=== PATIENT | male | born 1950 | race Caucasian/White ===

== ENCOUNTER → 2017-01-26 | Outpatient (CLI) | payer OTHER, MEDICARE ==
[~2017-01-26] MED LIST: AMINOPHYLLINE INJ/PF 250 MG/10 ML SDV IV ONE; REGADENOSON INJ 0.4 MG/5 ML DISP.SYRIN IV ONE
--- NOTE | 2017-01-26 13:39 | DRAGON STRESS TEST REPORT ---
INTRAVENOUS LEXISCAN CARDIOLITE STRESS TEST USING SINGLE PHOTON EMMISION COMPUTERIZED TOMOGRAPHIC. DATE OF PROCEDURE: January 26, 2017 INDICATION : Chest pain CARDIAC RISK FACTORS: Diabetes, hypertension, dyslipidemia, history of CAD with CABG RESTING EKG: Sinus rhythm, no Baseline ST segment changes noted STRESS EKG: No significant changes noted with LexiScan bolus REASON FOR TERMINATION: Protocol. PROCEDURE REPORT: Baseline heart rate 71 beats per minute with blood pressure of 129/66. Patient had no significant complaints. Heart rate at 2 minutes post bolus 82 with a blood pressure of 147/65. 3 minutes post bolus heart rate 80 with blood pressure of 176/69. No significant EKG changes were noted. Patient had no significant complaints during the procedure or postprocedure. Patient injected with Aminophyllin 75 mg at 3 minutes or later after Lexiscan bolus. CONCLUSIONS: Normal EKG and hemodynamic response to IV LexiScan. NUCLEAR DATA: At rest the patient was given 14.53 millicuries of technetium 99 sestamibi injected intravenously. As per protocol rest gated SPECT images were obtained. Subsequently the patient was given intravenous LexiScan at a dose of 0.4 mg in 5 mL intravenously, followed by flush with normal saline. Subsequently the stress dose of 44.5 millicuries of technetium 99 sestamibi was injected intravenously. As per protocol stress gated images were obtained. NUCLEAR INTERPRETATION: Both raw and processed data were used for interpretation. Visual, qualitative, computer-generated quantitative data was used. There was good myocardial uptake of technetium compound. Motion artifact and soft tissue attenuations were noted. Increased visceral uptake was noted. Mild decreased transient perfusion defect noted in the distal anterior wall consistent with mild ischemia noted. No definitive areas of fixed perfusion defect or scars noted. EKG gated imaging showed LV EF at 49 %, rest and stress gated EF similar visually, no definite wall motion abnormalities noted. T. I D. ratio was 1.23, this is borderline. Lung heart ratio noted to be within normal limits 0.32. No significant extracardiac and abnormal radiotracer activities were noted. RV free wall uptake was noted to be increased. IMPRESSION: Also refer to comments under nuclear interpretation. Also test results needs to be interpreted in the context of pretest probability. 1. Mild decreased transient perfusion defect noted in the distal anterior wall consistent with mild ischemia noted. SDS score is 1 2. There is no definitive scintigraphic evidence of myocardial infarction/scar. 3. EKG gated imaging shows left ejection fraction of approximately 49 %. Borderline transient ischemic dilatation suspected. RV free wall uptake noted to be mildly increased. 4. Clinical correlation requested as occasionally worse disease or balanced ischemia could be missed. In approximately 10% of the cases Lexiscan may not cause adequate vasodilatory stress. RECOMMENDATIONS: Aggressive risk factor modification, medical therapy. Consider heart catheterization if significant symptoms. Clinical correlation with echocardiogram derived ejection fraction. Inability to exercise by itself can lead to increased cardiovascular event risks. Consider cardiology consultation and or follow-up if clinically indicated. I AM AVAILABLE FOR CARDIOLOGY CONSULTATION AND FOLLOWUP IF REQUESTED BY PMD Mike Mora M.D., SHAN[employer] Reviewer auto parts handler, Board certified in cardiovascular diseases, Nuclear cardiology, Echocardiography Cardiac CT and cardiac MRI Ph. [phone] [facility]
== END ==
LOC: RAD 06:20
PROVIDERS: ATTEND Internal Medicine Cardiovascular Disease
DX: R07.9 Chest pain, unspecified (principal); I10 Essential (primary) hypertension; E78.5 Hyperlipidemia, unspecified
CPT/HCPCS: 93017; 78452; A9500; J2785; J0280; Q9969

== ENCOUNTER 2017-03-24 05:38 | Emergency (ER) | payer OTHER, MEDICARE ==
[2017-03-24] MEDS ORDERED: ONDANSETRON 4 MG TAB.RAPDIS PO ONE (06:52)
[2017-03-24] MEDS ORDERED: ASPIRIN 81 MG TABLET, CHEWABLE PO ONE (06:52)
--- NOTE | 2017-03-24 07:29 | RADIOLOGY REPORT (SQ) ---
EXAM DESCRIPTION: CHEST SINGLE VIEW COMPLETED DATE/TIME: 03/24/2017 7:05 am REASON FOR STUDY: chest pain COMPARISON: 05/30/2009. EXAM PARAMETERS: NUMBER OF VIEWS: One view. TECHNIQUE: Single frontal radiographic view of the chest acquired. RADIATION DOSE: NA LIMITATIONS: None. FINDINGS: LUNGS AND PLEURA: No opacities, masses or pneumothorax. No pleural effusion. MEDIASTINUM AND HILAR STRUCTURES: No masses. Contour normal. HEART AND VASCULAR STRUCTURES: Heart normal in size. Normal vasculature. BONES: No acute findings. HARDWARE: Sternotomy. Surgical clips overlie the left medial hemidiaphragm. OTHER: No other significant finding. IMPRESSION: NO ACUTE RADIOGRAPHIC FINDING IN THE CHEST. TECHNICAL DOCUMENTATION: JOB ID: [id number]
--- NOTE | 2017-03-24 07:35 | ER Document Report ---
ED General - General Chief Complaint: Chest Pain Stated Complaint: CHEST PAIN Time Seen by Provider: 03/24/17 06:03 Mode of Arrival: Medic Information source: Patient Notes: 66-year-old male history of SC with recent heart catheterization noting 90% blockage presents with complaints of continued chest pain as well as new onset left arm numbness. Patient denies any neurological deficits otherwise states the chest pain has been constant denies any fevers or chills TRAVEL OUTSIDE OF THE [place] IN LAST 30 DAYS: No - HPI Onset: Just prior to arrival Onset/Duration: Sudden Quality of pain: Pressure Severity: Mild Pain Level: 1 Associated symptoms: Chest pain, Other Exacerbated by: Denies Relieved by: Denies Similar symptoms previously: Yes Recently seen / treated by doctor: Yes - Related Data Allergies/Adverse Reactions: buspirone [Buspirone] Allergy (Severe, Verified 05/17/16 12:50) aspirin Allergy (Verified 05/17/16 12:50) VOMITING lisinopril Allergy (Verified 05/17/16 12:50) swelling metformin Allergy (Verified 05/17/16 12:50) ringing in ears/dizziness metoclopramide HCl [From Reglan] Allergy (Verified 05/17/16 12:50) Hallucinations pregabalin Allergy (Verified 05/17/16 12:50) diarrhea/stomach upset red dye [Red Dye] Allergy (Verified 05/17/16 12:50) Rash venlafaxine Allergy (Verified 05/17/16 12:50) coded from other allergy "vemlasaxine" ibuprofen Adverse Reaction (Verified 05/17/16 12:50) headache ivp dye Allergy (Uncoded 05/17/16 12:50) Rash Past Medical History - Social History Smoking Status: Never Smoker Cigarette use (# per day): No Chew tobacco use (# tins/day): No Smoking Education Provided: No Family History: Reviewed & Not Pertinent - Past Medical History Cardiac Medical History: Reports: Hx Coronary Artery Disease, Hx Heart Attack - 11/2000, Hx Hypercholesterolemia, Hx Hypertension Pulmonary Medical History: Denies: Hx Asthma, Hx Bronchitis, Hx COPD, Hx Pneumonia Neurological Medical History: Reports: Hx Cerebrovascular Accident - 02/2001. Denies: Hx Seizures Endocrine Medical History: Reports: Hx Diabetes Mellitus Type 1 Renal/ Medical History: Denies: Hx Peritoneal Dialysis GI Medical History: Reports: Hx Gastroesophageal Reflux Disease Musculoskeltal Medical History: Reports Hx Arthritis Past Surgical History: Reports: Hx Abdominal Surgery, Hx Cholecystectomy, Hx Open Heart Surgery - Immunizations Hx Diphtheria, Pertussis, Tetanus Vaccination: No - unsure Hx Pneumococcal Vaccination: 09/25/11 Review of Systems - Review of Systems Notes: REVIEW OF SYSTEMS: CONSTITUTIONAL : Denies fever, chills, or sweats. Denies recent illness. EENT: Denies eye, ear, throat, or mouth pain or symptoms. Denies nasal or sinus congestion or discharge. Denies throat, tongue, or mouth swelling or difficulty swallowing. CARDIOVASCULAR: Admits to left-sided chest pressure RESPIRATORY: Denies cough, cold, or chest congestion. Denies shortness of breath, difficulty breathing, or wheezing. GASTROINTESTINAL: Denies abdominal pain or distention. Denies nausea, vomiting , or diarrhea. Denies blood in vomitus, stools, or per rectum. Denies black, tarry stools. Denies constipation. GENITOURINARY: Denies difficulty urinating, painful urination, burning, frequency, blood in urine, or discharge. MUSCULOSKELETAL: Denies back or neck pain or stiffness. Denies joint pain or swelling. SKIN: Denies rash, lesions or sores. HEMATOLOGIC : Denies easy bruising or bleeding. LYMPHATIC: Denies swollen, enlarged glands. NEUROLOGICAL: Admits to left arm numbness PSYCHIATRIC: Denies anxiety or stress. Denies depression, suicidal ideation, or homicidal ideation. ALL OTHER SYSTEMS REVIEWED AND NEGATIVE. Dictation was performed using [employer] voice recognition software PHYSICAL EXAMINATION: GENERAL: Well-appearing, well-nourished and in no acute distress. HEAD: Atraumatic, normocephalic. EYES: Pupils equal round and reactive to light, extraocular movements intact, sclera anicteric, conjunctiva are normal. ENT: Nares patent, oropharynx clear without exudates. Moist mucous membranes. NECK: Normal range of motion, supple without lymphadenopathy LUNGS: Breath sounds clear to auscultation bilaterally and equal. No wheezes rales or rhonchi. HEART: Regular rate and rhythm without murmurs ABDOMEN: Soft, nontender, nondistended abdomen. No guarding, no rebound. No masses appreciated. Musculoskeletal: Normal range of motion, no pitting or edema. No cyanosis. NEUROLOGICAL: Cranial nerves grossly intact. Normal speech, normal gait. Normal sensory, motor exams except for subjective paresthesia of the left arm PSYCH: Normal mood, normal affect. SKIN: Warm, Dry, normal turgor, no rashes or lesions noted. Physical Exam - Vital signs Vitals: Temp Pulse Resp BP Pulse Ox 97.4 F 109 H 20 143/66 H 96 03/24/17 05:47 03/24/17 05:47 03/24/17 05:47 03/24/17 05:47 03/24/17 05:47 Course - Re-evaluation Re-evalutation: 03/24/17 07:40 Patient awoke with left arm numbness, last known well was last night. I read the patient's cardiac cath report and no extensive disease. Once labwork CTA have resolved I will speak with [facility] regarding patient's care 03/24/17 09:[address] Miller , will accept transfer , reviewed report - Vital Signs Vital signs: Temp Pulse Resp BP Pulse Ox 97.4 F 109 H 12 132/71 H 93 03/24/17 05:47 03/24/17 05:47 03/24/17 08:30 03/24/17 08:30 03/24/17 08:30 - Laboratory Result Diagrams: 03/24/17 06:04 03/24/17 06:04 Laboratory results interpreted by me: 03/24/17 03/24/17 03/24/17 06:04 06:04 06:04 WBC 15.9 H RDW 14.1 H Seg Neutrophils % 83.3 H Lymphocytes % 11.3 L Absolute Neutrophils 13.3 H BUN 23 H Glucose 321 H Creatine Kinase 504 H CK-MB (CK-2) 6.46 H
[2017-03-24 07:41] LABS: ABSOLUTE LYMPHOCYTES (AUTO) 1.8 10^3/uL (0.5-4.7); ABSOLUTE MONOCYTES (AUTO) 0.8 10^3/uL (0.1-1.4); ABSOLUTE NEUT (AUTO) 13.3 10^3/uL (1.7-8.2); BASOPHILS % (AUTO) 0.2 % (0-2); HEMOGLOBIN 14.4 g/dL (13.5-17.0); HGB HCT DIFFERENCE 1.2; LYMPHOCYTES % (AUTO) 11.3 % (13-45); MEAN CORPUSCULAR HEMOGLOBIN 29.3 pg (27.0-33.4); MEAN CORPUSCULAR HGB CONC 34.3 g/dL (32.0-36.0); MEAN CORPUSCULAR VOLUME 86 fl (80-97); MONOCYTES % (AUTO) 5.2 % (3-13); RED BLOOD COUNT 4.91 10^6/uL (4.35-5.55); RED CELL DISTRIBUTION WIDTH 14.1 % (11.5-14.0); SEGMENTED NEUTROPHILS % (AUTO) 83.3 % (42-78); WHITE BLOOD COUNT 15.9 10^3/uL (4.0-10.5)
[2017-03-24 07:47] LABS: ALANINE AMINOTRANSFERASE 39 U/L (21-72); ALBUMIN 4.3 g/dL (3.5-5.0); ALKALINE PHOSPHATASE 91 U/L (38-126); ANION GAP 11 (5-19); ASPARTATE AMINO TRANSFERASE 49 U/L (17-59); BILIRUBIN,DIRECT 0.4 mg/dL (0.0-0.4); BILIRUBIN,TOTAL 0.6 mg/dL (0.2-1.3); BLOOD UREA NITROGEN 23 mg/dL (7-20); CALCIUM 9.3 mg/dL (8.4-10.2); CARBON DIOXIDE 27 mmol/L (22-30); CHLORIDE 101 mmol/L (98-107); CREATINE KINASE 504 U/L (55-170); CREATININE RESULT 0.73 mg/dL (0.52-1.25); GLUCOSE 321 mg/dL (75-110); POTASSIUM 4.1 mmol/L (3.6-5.0); SODIUM 138.9 mmol/L (137-145); TOTAL PROTEIN 7.4 g/dL (6.3-8.2)
--- NOTE | 2017-03-24 07:56 | RADIOLOGY REPORT (SQ) ---
EXAM DESCRIPTION: CT HEAD WITHOUT COMPLETED DATE/TIME: 03/24/2017 7:45 am REASON FOR STUDY: left arm numbness COMPARISON: 05/30/2009. TECHNIQUE: Axial images acquired through the brain without intravenous contrast. Images reviewed wi th bone, brain and subdural windows. Images stored on PACS. All CT scanners at this facility use dose modulation, iterative reconstruction, and/or weight based d osing when appropriate to reduce radiation dose to as low as reasonably achievable (ALARA). [facility]: Dose Right [facility]: CareDose [facility]: Dose Right [facility]: Teradose 4D [facility]: What the Trend RADIATION DOSE: 63.81 mGy. LIMITATIONS: None. FINDINGS: VENTRICLES: Normal size and contour. CEREBRUM: No masses. No hemorrhage. No midline shift. Normal robert/white matter differentiation. N o evidence for acute infarction. Mild white matter microangiopathy. CEREBELLUM: No masses. No hemorrhage. No alteration of density. No evidence for acute infarction. EXTRAAXIAL SPACES: No fluid collections. No masses. ORBITS AND GLOBE: No intra- or extraconal masses. Normal contour of globe without masses. CALVARIUM: No fracture. PARANASAL SINUSES: Moderate right maxillary mucosal thickening. SOFT TISSUES: No mass or hematoma. OTHER: No other significant finding. IMPRESSION: No acute findings. Stable mild white matter microangiopathy pattern. Chronic right max illary sinusitis. TECHNICAL DOCUMENTATION: JOB ID: [id number] Quality ID # [id number]: Final reports with documentation of one or more dose reduction techniques (e.g., Au tomated exposure control, adjustment of the mA and/or kV according to patient size, use of iterative reconstruction technique) 2010 [employer]- All Rights Reserved
[2017-03-24 07:58] LABS: CREATINE KINASE MB 6.46 ng/mL (<4.55)
[2017-03-24 07:59] LABS: TROPONIN I < 0.012 ng/mL
[2017-03-24] MEDS ORDERED: NITROGLYCERIN 0.4 MG/TAB 25 TAB/BOTTLE SL ONE (08:10)
[2017-03-24] MEDS ORDERED: MORPHINE SULFATE 10 MG/ML INJ IV ONE (08:25)
--- NOTE | 2017-03-24 08:36 | EKG REPORT ---
SEVERITY:- OTHERWISE NORMAL ECG - SINUS TACHYCARDIA : Confirmed by: Mike Mora 24-Mar-2017 08:36:06
[2017-03-24] MEDS ORDERED: INSULIN GLARGINE,HUM.REC.ANLOG 1,000 UNIT/10 ML UNIT SUBCUT ONE (09:47)
[2017-03-24 10:37] VITALS: BP 137/75
== END 2017-03-24 10:30 | disposition short-term general hospital (02) ==
LOC: ER 05:38
DX: I25.110 Atherosclerotic heart disease of native coronary artery with unstable angina pectoris (principal); R20.0 Anesthesia of skin; I10 Essential (primary) hypertension; I25.2 Old myocardial infarction; E10.9 Type 1 diabetes mellitus without complications; Z88.6 Allergy status to analgesic agent; Z88.8 Allergy status to other drugs, medicaments and biological substances; Z91.048 Other nonmedicinal substance allergy status; Z91.040 Latex allergy status; Z86.73 Personal history of transient ischemic attack (TIA), and cerebral infarction without residual deficits
CPT/HCPCS: 93005; 99285; 96374; 36415; 82553; 82962; 82550; 85025; 80053; 84484; 71010; 70450; 93010; J1815; S0119; J2270

== ENCOUNTER 2017-04-26 06:48 | Day surgery (SDC) | payer MEDICARE, OTHER ==
[~2017-04-26 06:48] MED LIST changes: -AMINOPHYLLINE INJ/PF 250 MG/10 ML SDV IV ONE; +FENTANYL CITRATE INJ/PF 100 MCG/2 ML AMPUL ONE; +KETOROLAC TROMETHAMINE 0.45% 4 DROP/0.4 ML DROPERETTE OD PRN; +MIDAZOLAM 2 MG/2 ML INJ ONE; -REGADENOSON INJ 0.4 MG/5 ML DISP.SYRIN IV ONE
[2017-04-26] MEDS ORDERED: EPINEPHRINE INJ/PF 1 MG/1 ML AMPULE ONE (07:17)
[2017-04-26] MEDS ORDERED: CHONDR SU A NA/HYALUR INTRAOC KIT (SURGICARE) ONE (07:17)
[2017-04-26] MEDS ORDERED: TOBRAMYCIN SULFATE/DEXAMETH OPH OINTMENT 3.5 GM ONE (07:17)
[2017-04-26] MEDS ORDERED: LIDOCAINE 1% INJ-PF (10 MG/ML) 30 ML SDV ONE (07:17)
[2017-04-26] MEDS: LIDOCAINE 3.5% OPH GEL/PF 1 ML/TUBE OD PRN ×3 (07:25→07:58)
[2017-04-26] MEDS: CYCLOPENTOLATE 0.2%/PHENYLEPHRINE 1% OPH SOLN 2 ML OD PRN ×3 (07:26→07:47)
[2017-04-26] MEDS: TROPICAMIDE 1% OPH SOLN 3 ML OD PRN ×3 (07:26→07:47)
[2017-04-26] MEDS: BESIFLOXACIN HCL 0.6% OPH SUSP 5 ML BOTTLE OD PRN ×3 (07:27→08:18)
[2017-04-26] MEDS ORDERED: PHENYLEPHRINE/KETOROLAC 1%-0.3% 4 ML VIAL ONE (07:34)
[2017-04-26] MEDS ORDERED: MIDAZOLAM 2 MG/2 ML INJ ONE (08:07)
== END 2017-04-26 09:08 | disposition home or self-care (01) ==
LOC: SC 06:48
PROVIDERS: ATTEND Ophthalmology
PROC: 08RJ3JZ Replacement of Right Lens with Synthetic Substitute, Percutaneous Approach (ICD-10-PCS; principal; 2017-04-26 07:45)
DX: H25.11 Age-related nuclear cataract, right eye (principal); E11.9 Type 2 diabetes mellitus without complications; I10 Essential (primary) hypertension; E78.00 Pure hypercholesterolemia, unspecified; G47.30 Sleep apnea, unspecified; I25.2 Old myocardial infarction; Z86.73 Personal history of transient ischemic attack (TIA), and cerebral infarction without residual deficits; Z79.899 Other long term (current) drug therapy; Z79.4 Long term (current) use of insulin; Z79.1 Long term (current) use of non-steroidal anti-inflammatories (NSAID); Z87.891 Personal history of nicotine dependence; Z88.8 Allergy status to other drugs, medicaments and biological substances
CPT/HCPCS: 66984; 82962; V2632; J2250; J3490 ×3; J3010; A9270; C9447; 142; J0171

== ENCOUNTER 2017-05-10 08:21 | Day surgery (SDC) | payer MEDICARE, OTHER ==
[~2017-05-10 08:21] MED LIST changes: -FENTANYL CITRATE INJ/PF 100 MCG/2 ML AMPUL ONE; -KETOROLAC TROMETHAMINE 0.45% 4 DROP/0.4 ML DROPERETTE OD PRN; +KETOROLAC TROMETHAMINE 0.45% 4 DROP/0.4 ML DROPERETTE OS PRN; -MIDAZOLAM 2 MG/2 ML INJ ONE
[2017-05-10] MEDS: TROPICAMIDE 1% OPH SOLN 3 ML OS PRN ×3 (09:15→09:36)
[2017-05-10] MEDS: CYCLOPENTOLATE 0.2%/PHENYLEPHRINE 1% OPH SOLN 2 ML OS PRN ×3 (09:15→09:36)
[2017-05-10] MEDS: BESIFLOXACIN HCL 0.6% OPH SUSP 5 ML BOTTLE OS PRN ×3 (09:16→10:07)
[2017-05-10] MEDS: LIDOCAINE 3.5% OPH GEL/PF 1 ML/TUBE OS PRN ×3 (09:17→09:51)
[2017-05-10] MEDS ORDERED: FENTANYL CITRATE INJ/PF 100 MCG/2 ML AMPUL ONE (09:30)
[2017-05-10] MEDS ORDERED: MIDAZOLAM 2 MG/2 ML INJ ONE (09:30)
[2017-05-10] MEDS ORDERED: CHONDR SU A NA/HYALUR INTRAOC KIT (SURGICARE) ONE (09:37)
[2017-05-10] MEDS ORDERED: EPINEPHRINE INJ/PF 1 MG/1 ML AMPULE ONE (09:37)
[2017-05-10] MEDS ORDERED: LIDOCAINE 1% INJ-PF (10 MG/ML) 30 ML SDV ONE (09:37)
[2017-05-10] MEDS ORDERED: TOBRAMYCIN SULFATE/DEXAMETH OPH OINTMENT 3.5 GM ONE (09:37)
== END 2017-05-10 10:44 | disposition home or self-care (01) ==
LOC: SC 08:21
PROVIDERS: ATTEND Ophthalmology
PROC: 08RK3JZ Replacement of Left Lens with Synthetic Substitute, Percutaneous Approach (ICD-10-PCS; principal; 2017-05-10 09:45)
DX: H25.12 Age-related nuclear cataract, left eye (principal); Z96.1 Presence of intraocular lens; Z98.41 Cataract extraction status, right eye; I10 Essential (primary) hypertension; E11.9 Type 2 diabetes mellitus without complications; E78.00 Pure hypercholesterolemia, unspecified; K21.9 Gastro-esophageal reflux disease without esophagitis; D64.9 Anemia, unspecified; E05.90 Thyrotoxicosis, unspecified without thyrotoxic crisis or storm; Z79.4 Long term (current) use of insulin; Z79.899 Other long term (current) drug therapy; Z87.891 Personal history of nicotine dependence; Z88.8 Allergy status to other drugs, medicaments and biological substances; I25.2 Old myocardial infarction; Z86.73 Personal history of transient ischemic attack (TIA), and cerebral infarction without residual deficits
CPT/HCPCS: 66984; 82962; V2632; J2250; J3490 ×3; J0171; J3010; A9270; 142

== ENCOUNTER 2017-11-19 10:10 | Emergency (ER) | payer OTHER, MEDICARE ==
[2017-11-19] MEDS ORDERED: NORMAL SALINE 1000 ML 1,000 ML IV ONE (10:58)
[2017-11-19 11:04] LABS: ABSOLUTE EOSINOPHILS # (AUTO) 0.2 10^3/uL (0.0-0.6); ABSOLUTE LYMPHOCYTES (AUTO) 1.1 10^3/uL (0.5-4.7); ABSOLUTE MONOCYTES (AUTO) 0.7 10^3/uL (0.1-1.4); ABSOLUTE NEUT (AUTO) 6.6 10^3/uL (1.7-8.2); BASOPHILS % (AUTO) 0.3 % (0-2); EOSINOPHILS % (AUTO) 2.7 % (0-6); HEMOGLOBIN 12.6 g/dL (13.5-17.0); LYMPHOCYTES % (AUTO) 12.6 % (13-45); MEAN CORPUSCULAR HEMOGLOBIN 30.4 pg (27.0-33.4); MEAN CORPUSCULAR HGB CONC 34.2 g/dL (32.0-36.0); MEAN CORPUSCULAR VOLUME 89 fl (80-97); MONOCYTES % (AUTO) 8.5 % (3-13); PLATELET COUNT 178 10^3/uL (150-450); RED BLOOD COUNT 4.16 10^6/uL (4.35-5.55); RED CELL DISTRIBUTION WIDTH 13.5 % (11.5-14.0); SEGMENTED NEUTROPHILS % (AUTO) 75.9 % (42-78); TOTAL CELLS COUNTED % (AUTO) 100 %; WHITE BLOOD COUNT 8.6 10^3/uL (4.0-10.5)
[2017-11-19 11:14] LABS: ALANINE AMINOTRANSFERASE 25 U/L (21-72); ALBUMIN 3.6 g/dL (3.5-5.0); ALKALINE PHOSPHATASE 48 U/L (38-126); ANION GAP 12 (5-19); ASPARTATE AMINO TRANSFERASE 23 U/L (17-59); BILIRUBIN,DIRECT 0.1 mg/dL (0.0-0.4); BILIRUBIN,TOTAL 0.5 mg/dL (0.2-1.3); BLOOD UREA NITROGEN 13 mg/dL (7-20); CALCIUM 8.7 mg/dL (8.4-10.2); CARBON DIOXIDE 29 mmol/L (22-30); CHLORIDE 97 mmol/L (98-107); GLUCOSE 186 mg/dL (75-110); POTASSIUM 4.3 mmol/L (3.6-5.0); SODIUM 137.6 mmol/L (137-145); TOTAL PROTEIN 5.8 g/dL (6.3-8.2)
--- NOTE | 2017-11-19 13:22 | RADIOLOGY REPORT (SQ) ---
EXAM DESCRIPTION: CT ABD/PELVIS NO ORAL OR IV COMPLETED DATE/TIME: 11/19/2017 1:12 pm REASON FOR STUDY: Postop abdominal pain COMPARISON: None. TECHNIQUE: CT scan of the abdomen and pelvis performed without intravenous or oral contrast. Images reviewed with lung, soft tissue, and bone windows. Reconstructed coronal and sagittal MPR images revi ewed. All images stored on PACS. All CT scanners at this facility use dose modulation, iterative reconstruction, and/or weight based d osing when appropriate to reduce radiation dose to as low as reasonably achievable (ALARA). [facility]: Dose Right [facility]: CareDose [facility]: Dose Right [facility]: Teradose 4D [facility]: [employer] RADIATION DOSE: CT Rad equipment meets quality standard of care and radiation dose reduction techniq ues were employed. CTDIvol: 16.7 mGy. DLP: 1043 mGy-cm.mGy. LIMITATIONS: None. FINDINGS: LOWER CHEST: Dependent subsegmental atelectasis. Otherwise unremarkable. NON-CONTRASTED LIVER, SPLEEN, ADRENALS: Evaluation limited by lack of IV contrast. No identified sign ificant masses. PANCREAS: No masses. No peripancreatic inflammatory changes. GALLBLADDER: No identified stones by CT criteria. No inflammatory changes to suggest cholecystitis. RIGHT KIDNEY AND URETER: No suspicious masses. Assessment limited by lack of IV contrast. No signif icant calcifications. No hydronephrosis or hydroureter. LEFT KIDNEY AND URETER: No suspicious masses. Assessment limited by lack of IV contrast. No signifi cant calcifications. No hydronephrosis or hydroureter. AORTA AND RETROPERITONEUM: Vascular calcifications. No aneurysm. No retroperitoneal masses or adeno chet. BOWEL AND PERITONEAL CAVITY: Scattered colonic diverticula. No obvious masses or inflammatory change s. No free fluid. APPENDIX: Normal. PELVIS, BLADDER, AND ABDOMINAL WALL:Expected postsurgical change related to recent hernia repair with subcutaneous gas. No abnormal masses. No free fluid. Bladder normal. BONES: Degenerative change without fracture or suspicious osseous lesion. OTHER: No other significant finding. IMPRESSION: NO ACUTE FINDINGS WITHIN THE ABDOMEN OR PELVIS. NO URINARY TRACT CALCULI OR HYDRONEPHRO SIS. EXPECTED POSTOPERATIVE CHANGE RELATED TO RECENT HERNIA REPAIR. ADDITIONAL CHRONIC CHANGES ABOVE. COMMENT: Quality ID # [id number]: Final reports with documentation of one or more dose reduction techniques (e.g., Automated exposure control, adjustment of the mA and/or kV according to patient size, use of iterative reconstruction technique) TECHNICAL DOCUMENTATION: JOB ID: [id number] [employer]- All Rights Reserved Reading location - IP/workstation name: [email or web address]
[2017-11-19 14:03] LABS: A TYPE INFLUENZA AG NEGATIVE (NEGATIVE); B INFLUENZA AG NEGATIVE (NEGATIVE)
--- NOTE | 2017-11-19 14:44 | ER Document Report ---
ED Dizziness/Weakness - General Chief Complaint: General Weakness Stated Complaint: WEAKNESS Notes: 66 years old male postop 4 days, had an abdominal hernia repaired the same time by lateral inguinal hernia was repaired, woke up this morning stood up felt dizzy and lightheaded had some temperature therefore presented to the ED. He also had numbness in the both hands with a history of carpal tunnel syndrome. Denied any increased abdominal pain nausea vomiting diarrhea . Denies any dysuria frequency urgency. Denies any chest pain shortness of breath or cough. TRAVEL OUTSIDE OF THE [place] IN LAST 30 DAYS: No - HPI Patient complains to provider of: Dizziness Onset/Duration: Sudden Associated symptoms: denies: None, Chest pain, Confused, Diarrhea, Dizzy, Ear pain, Almost fainted, Fainted, Headache, Hearing loss, Less responsive, Lightheaded, Loss of motor function, Loss of strength, Loss of sensation, Nausea , Palpitations, Paralysis, Recent fall, Recent trauma, Ringing/roaring in ear, Short of breath, Sleeping more, Sweating, Vertigo, Vomiting, Weak all over, Other - Related Data Allergies/Adverse Reactions: lisinopril Allergy (Severe, Verified 05/08/17 15:53) TONGUE swelling metformin Allergy (Severe, Verified 05/08/17 15:53) ringing in ears/dizziness metoclopramide HCl [From Reglan] Allergy (Severe, Verified 05/08/17 15:53) Hallucinations red dye [Red Dye] Allergy (Intermediate, Verified 05/08/17 15:53) Rash venlafaxine Allergy (Intermediate, Verified 05/08/17 15:53) coded from other allergy "vemlasaxine" HYPER buspirone [Buspirone] Allergy (Unknown, Verified 05/08/17 15:53) pregabalin Adverse Reaction (Intermediate, Verified 05/08/17 15:53) diarrhea/stomach upset ibuprofen Adverse Reaction (Mild, Verified 05/08/17 15:53) headache aspirin Adverse Reaction (Verified 05/08/17 15:53) VOMITING ivp dye Adverse Reaction (Intermediate, Uncoded 05/08/17 15:53) Rash Past Medical History - Social History Smoking Status: Unknown if Ever Smoked Cigarette use (# per day): No Chew tobacco use (# tins/day): No Frequency of alcohol use: Rare Drug Abuse: None Lives with: Family Family History: Reviewed & Not Pertinent Patient has suicidal ideation: No Patient has homicidal ideation: No - Past Medical History Cardiac Medical History: Reports: Hx Coronary Artery Disease, Hx Heart Attack - 11/2000, Hx Hypercholesterolemia, Hx Hypertension Pulmonary Medical History: Denies: Hx Asthma, Hx Bronchitis, Hx COPD, Hx Pneumonia Neurological Medical History: Reports: Hx Cerebrovascular Accident - 02/2001 DROP FOOT. Denies: Hx Seizures Endocrine Medical History: Reports: Hx Diabetes Mellitus Type 1 Renal/ Medical History: Denies: Hx Peritoneal Dialysis GI Medical History: Reports: Hx Gastroesophageal Reflux Disease, Hx Hiatal Hernia - LAP MIMI, Hx Ulcer. Denies: Hx Hepatitis Musculoskeltal Medical History: Reports Hx Arthritis Infectious Medical History: Denies: Hx Hepatitis Past Surgical History: Reports: Hx Abdominal Surgery - Hernia Repair x4 10/2017, Hx Cholecystectomy, Hx Open Heart Surgery - 07/2000. Denies: Hx Pacemaker - Immunizations Hx Diphtheria, Pertussis, Tetanus Vaccination: No - unsure Hx Pneumococcal Vaccination: 09/25/11 Review of Systems - Review of Systems Constitutional: Fever, Malaise. denies: No symptoms reported, See HPI, Chills, Diaphoresis, Weakness, Other, Weight gain, Weight loss, Recent illness EENT: denies: No symptoms reported, See HPI, Eye pain, Eye discharge, Blurred vision, Tearing, Double vision, Ear pain, Ear discharge, Nose pain, Nose congestion, Nose discharge, Sinus pressure, Sinus discharge, Throat pain, Difficulty swallowing, Throat swelling, Mouth pain, Mouth swelling, Dental problem, Vertigo, Other Cardiovascular: denies: No symptoms reported, See HPI, Chest pain, Palpitations , Heart racing, Orthopnea, Dyspnea, Syncope, Dizziness, Lightheaded, Edema, Other, Paroxysmal Nocturnal Dysp Gastrointestinal: denies: No symptoms reported, See HPI, Abdomen distended, Abdominal pain, Diarrhea, Nausea, Vomiting, Constipation, Blood streaked bowels , Poor appetite, Poor fluid intake, Blood in vomit, Black stools, Rectal bleeding, Last bowel movement, Fecal incontinence, Other Genitourinary: denies: No symptoms reported, See HPI, Burning, Dysuria, Discharge, Frequency, Flank pain, Hematuria, Incontinence, Pain, Urgency, Retention, Other Male Genitourinary: denies: No symptoms reported, See HPI, Erectile dysfunction , Testicular pain, Penile discharge, Other Musculoskeletal: denies: No symptoms reported, See HPI, Back pain, Gout, Joint pain, Joint swelling, Muscle pain, Muscle stiffness, Neck pain, Deformity, Leg swelling, Ankle swelling, Other Physical Exam - Vital signs Vitals: Resp BP 20 136/76 H 11/19/17 10:17 11/19/17 10:17 - Notes Notes: PHYSICAL EXAMINATION: GENERAL: Well-appearing, well-nourished and in no acute distress. Not in any acute distress HEAD: Atraumatic, normocephalic. EYES: Pupils equal round and reactive to light, extraocular movements intact, sclera anicteric, conjunctiva are normal. ENT: Nares patent, oropharynx clear without exudates. Moist mucous membranes. NECK: Normal range of motion, supple without lymphadenopathy LUNGS: Breath sounds clear to auscultation bilaterally and equal. No wheezes rales or rhonchi. HEART: Regular rate and rhythm without murmurs ABDOMEN: Abdominal surgical scars were noted. Soft, nontender, nondistended abdomen. No guarding, no rebound. No masses appreciated. Musculoskeletal: Normal range of motion, no pitting or edema. No cyanosis. NEUROLOGICAL: Cranial nerves grossly intact. Normal speech, normal gait. Normal sensory, motor exams PSYCH: Normal mood, normal affect. SKIN: Warm, Dry, normal turgor, no rashes or lesions noted. Course - Re-evaluation Re-evalutation: 11/19/17 14:41 He was given IV fluid, complete blood work were done, labs and CT were reviewed 11/19/17 14:44 - Vital Signs Vital signs: Temp Pulse Resp BP Pulse Ox 98.5 F 86 17 102/79 97 11/19/17 10:30 11/19/17 10:30 11/19/17 13:32 11/19/17 13:32 11/19/17 13:00 - Laboratory Result Diagrams: 11/19/17 09:50 11/19/17 09:50 Laboratory results interpreted by me: 11/19/17 11/19/17 09:50 09:50 RBC 4.16 L Hgb 12.6 L Hct 37.0 L Lymphocytes % 12.6 L Chloride 97 L Glucose 186 H Total Protein 5.8 L Lipase 22.0 L Discharge - Discharge Clinical Impression: Postoperative abdominal pain, Viral syndrome, Dehydration, Carpal tunnel syndrome on both sides Condition: Fair Disposition: HOME, SELF-CARE Instructions: Abdominal Pain ([facility]), Bowel Obstruction ([facility]), Fever ([facility]), Carpal Tunnel Syndrome ([facility]) Referrals: JAZIEL THORNTON MD [Primary Care Provider] - Follow up as needed
[2017-11-19 15:43] VITALS: BP 147/73
== END 2017-11-19 15:55 | disposition home or self-care (01) ==
LOC: ER 10:10
DX: G89.18 Other acute postprocedural pain (principal); B34.9 Viral infection, unspecified; E86.0 Dehydration; G56.03 Carpal tunnel syndrome, bilateral upper limbs; R53.1 Weakness; R42 Dizziness and giddiness; R20.0 Anesthesia of skin; Z98.890 Other specified postprocedural states
CPT/HCPCS: 99285; 96360; 36415; 83690; 85025; 82272; 80053; 83605; 87804; 74176; J7030

== ENCOUNTER → 2019-06-27 | Outpatient (CLI) | payer OTHER, MEDICARE | LOC: OD 15:02 | PROVIDERS: ATTEND Otolaryngology | DX: R68.2 Dry mouth, unspecified (principal) | CPT/HCPCS: 36415; 86235 ==

== ENCOUNTER 2019-07-30 11:47 | Observation (INO) | payer OTHER, MEDICARE ==
--- NOTE | 2019-07-30 12:24 | RADIOLOGY REPORT (SQ) ---
EXAM DESCRIPTION: CT HEAD WITHOUT COMPLETED DATE/TIME: 07/30/2019 12:14 pm REASON FOR STUDY: Headache with history of CVA COMPARISON: 03/24/2017 TECHNIQUE: Axial images acquired through the brain without intravenous contrast. Images reviewed wi th bone, brain and subdural windows. Additional sagittal and coronal reconstructions were generated. Images stored on PACS. All CT scanners at this facility use dose modulation, iterative reconstruction, and/or weight based d osing when appropriate to reduce radiation dose to as low as reasonably achievable (ALARA). [facility]: Dose Right [facility]: CareDose [facility]: Dose Right [facility]: Teradose 4D [facility]: [employer] RADIATION DOSE: CT Rad equipment meets quality standard of care and radiation dose reduction techniq ues were employed. CTDIvol: 53.2 mGy. DLP: 1097 mGy-cm. mGy. LIMITATIONS: None. FINDINGS: VENTRICLES: Normal size and contour. CEREBRUM: No masses. No hemorrhage. No midline shift. No evidence for acute infarction. Few scatte red areas of low density in the white matter most likely chronic small vessel ischemic changes. CEREBELLUM: No masses. No hemorrhage. No alteration of density. No evidence for acute infarction. EXTRAAXIAL SPACES: No fluid collections. No masses. ORBITS AND GLOBE: No intra- or extraconal masses. Normal contour of globe without masses. CALVARIUM: No fracture. PARANASAL SINUSES: Mild mucoperiosteal thickening in the maxillary sinuses. Bilateral antral windows . SOFT TISSUES: No mass or hematoma. OTHER: No other significant finding. IMPRESSION: Mild chronic microvascular ischemia. No acute intracranial imaging findings. Chronic m axillary sinus disease. EVIDENCE OF ACUTE STROKE: NO. COMMENT: Quality ID # [id number]: Final reports with documentation of one or more dose reduction techniques (e.g., Automated exposure control, adjustment of the mA and/or kV according to patient size, use of iterative reconstruction technique) TECHNICAL DOCUMENTATION: JOB ID: [id number] [employer]- All Rights Reserved Reading location - IP/workstation name: [email or web address]
[2019-07-30 13:02] LABS: ALBUMIN 3.3 g/dL (3.5-5.0); CHLORIDE 99 mmol/L (98-107); POTASSIUM 4.4 mmol/L (3.6-5.0)
[2019-07-30 13:20] LABS: APPEARANCE,URINE CLEAR; BILIRUBIN,URINE NEGATIVE (NEGATIVE); COLOR,URINE YELLOW; GLUCOSE, URINE 50 mg/dL (NEGATIVE); KETONES,URINE NEGATIVE (NEGATIVE); LEUKOCYTE ESTERASE,URINE NEGATIVE (NEGATIVE); NITRITE,URINE NEGATIVE (NEGATIVE); PROTEIN,URINE NEGATIVE (NEGATIVE); URINE SPECIFIC GRAVITY 1.006; UROBILINOGEN,URINE NEGATIVE mg/dL (<2.0)
[2019-07-30 13:38] LABS: ALKALINE PHOSPHATASE 53 U/L (38-126); ANION GAP 10 (5-19); ASPARTATE AMINO TRANSFERASE 23 U/L (17-59); BILIRUBIN,DIRECT 0.2 mg/dL (0.0-0.4); BILIRUBIN,TOTAL 0.8 mg/dL (0.2-1.3); BLOOD UREA NITROGEN 13 mg/dL (7-20); CALCIUM 8.6 mg/dL (8.4-10.2); CARBON DIOXIDE 27 mmol/L (22-30); GLUCOSE 158 mg/dL (75-110); TOTAL PROTEIN 6.1 g/dL (6.3-8.2)
[2019-07-30 13:47] LABS: ABSOLUTE EOSINOPHILS # (AUTO) 0.1 10^3/uL (0.0-0.6); ABSOLUTE LYMPHOCYTES (AUTO) 1.1 10^3/uL (0.5-4.7); ABSOLUTE MONOCYTES (AUTO) 0.7 10^3/uL (0.1-1.4); ABSOLUTE NEUT (AUTO) 6.3 10^3/uL (1.7-8.2); BASOPHILS % (AUTO) 0.5 % (0-2); EOSINOPHILS % (AUTO) 1.7 % (0-6); HEMATOCRIT 40.3 % (37.9-51.0); HEMOGLOBIN 14.2 g/dL (13.5-17.0); LYMPHOCYTES % (AUTO) 12.9 % (13-45); MEAN CORPUSCULAR HEMOGLOBIN 31.3 pg (27.0-33.4); MEAN CORPUSCULAR HGB CONC 35.3 g/dL (32.0-36.0); MEAN CORPUSCULAR VOLUME 89 fl (80-97); PLATELET COUNT 212 10^3/uL (150-450); RED BLOOD COUNT 4.53 10^6/uL (4.35-5.55); RED CELL DISTRIBUTION WIDTH 13.5 % (11.5-14.0); SEGMENTED NEUTROPHILS % (AUTO) 76.9 % (42-78); TOTAL CELLS COUNTED % (AUTO) 100 %; WHITE BLOOD COUNT 8.2 10^3/uL (4.0-10.5)
[2019-07-30] MEDS ORDERED: MORPHINE SULFATE 10 MG/ML INJ IV ONE (13:55)
[2019-07-30] MEDS ORDERED: NORMAL SALINE 1000 ML 1,000 ML IV ONE (13:55)
[2019-07-30] MEDS ORDERED: BUTALB/ACETAMINOPHEN/CAFFEINE 1 TAB EACH PO ONE (15:10)
--- NOTE | 2019-07-30 15:22 | ER Document Report ---
ED General - General Chief Complaint: Headache Stated Complaint: HEADACHE Time Seen by Provider: 07/30/19 12:10 [facility] [[facility] - Follow up as needed Mode of Arrival: Ambulatory Information source: Patient TRAVEL OUTSIDE OF THE [place] IN LAST 30 DAYS: No - HPI Notes: Patient presents with headache that is mainly frontal and on the top of his head. It is been going on for several weeks but is gradually getting worse. He states last night he was screaming in pain and unable to sleep. His states he is also been acting confused. Patient also complained of some generalized body aches. The headache is worse with movement or light and better with rest and dark room. It is severe and constant. It is a throbbing and sharp sensation as well as a pressure. He has a history of 4 previous sinus surgeries. He recently was tried on Augmentin but this made no difference in the headache. He has not been having relief from the pain medicines he takes at home. Some nausea no vomiting or diarrhea. No rashes. No known tick bites. - Related Data Allergies/Adverse Reactions: lisinopril Allergy (Severe, Verified 05/19/18 23:19) TONGUE swelling metformin Allergy (Severe, Verified 05/19/18 23:19) ringing in ears/dizziness metoclopramide HCl [From Reglan] Allergy (Severe, Verified 05/19/18 23:19) Hallucinations red dye [Red Dye] Allergy (Intermediate, Verified 05/19/18 23:19) Rash venlafaxine Allergy (Intermediate, Verified 05/19/18 23:19) coded from other allergy "vemlasaxine" HYPER buspirone [Buspirone] Allergy (Unknown, Verified 05/19/18 23:19) pregabalin Adverse Reaction (Intermediate, Verified 05/19/18 23:19) diarrhea/stomach upset ibuprofen Adverse Reaction (Mild, Verified 05/19/18 23:19) headache aspirin Adverse Reaction (Verified 05/19/18 23:19) VOMITING Past Medical History - General Information source: Patient - Social History Smoking Status: Former Smoker Chew tobacco use (# tins/day): No Frequency of alcohol use: None Drug Abuse: None Family History: DM, Hypertension Patient has suicidal ideation: No Patient has homicidal ideation: No - Past Medical History Cardiac Medical History: Reports: Hx Coronary Artery Disease, Hx Heart Attack - 11/2000, Hx Hypercholesterolemia, Hx Hypertension Pulmonary Medical History: Denies: Hx Asthma, Hx Bronchitis, Hx COPD, Hx Pneumonia Neurological Medical History: Reports: Hx Cerebrovascular Accident - 02/2001 DROP FOOT. Denies: Hx Seizures Endocrine Medical History: Reports: Hx Diabetes Mellitus Type 1, Hx Diabetes Mellitus Type 2 Renal/ Medical History: Denies: Hx Peritoneal Dialysis GI Medical History: Reports: Hx Gastroesophageal Reflux Disease, Hx Hiatal Hernia - LAP MIMI, Hx Ulcer. Denies: Hx Hepatitis Musculoskeletal Medical History: Reports Hx Arthritis Infectious Medical History: Denies: Hx Hepatitis Past Surgical History: Reports: Hx Abdominal Surgery - Hernia Repair x4 10/2017, Hx Cholecystectomy, Hx Coronary Artery Bypass Graft - x4, Hx Open Heart Surgery - 07/2000, Other - Recent bilateral browlift surgery and both eyelid lift surgery. Denies: Hx Pacemaker - Immunizations Hx Diphtheria, Pertussis, Tetanus Vaccination: No - unsure Hx Pneumococcal Vaccination: 09/25/11 Review of Systems - Review of Systems Constitutional: Malaise, Weakness Cardiovascular: denies: Chest pain, Palpitations Respiratory: Cough. denies: Short of breath Neurological/Psychological: Confusion -: Yes All other systems reviewed and negative Physical Exam - Vital signs Vitals: Resp BP Pulse Ox 21 H 134/82 H 93 07/30/19 12:15 07/30/19 12:15 07/30/19 12:15 Interpretation: Normal - General General appearance: Appears well, Alert - HEENT Head: Normocephalic, Atraumatic Eyes: Normal Pupils: PERRL - Respiratory Respiratory status: No respiratory distress Chest status: Nontender Breath sounds: Normal Chest palpation: Normal - Cardiovascular Rhythm: Regular Heart sounds: Normal auscultation Murmur: No - Abdominal Inspection: Normal Distension: No distension Bowel sounds: Normal Tenderness: Nontender Organomegaly: No organomegaly - Back Back: Normal, Nontender - Extremities General upper extremity: Normal inspection, Nontender, Normal color, Normal ROM, Normal temperature General lower extremity: Normal inspection, Nontender, Normal color, Normal ROM, Normal temperature, Normal weight bearing. No: Fred's sign - Neurological Neuro grossly intact: Yes Cognition: Normal Orientation: AAOx4 [place] Coma Scale Eye Opening: Spontaneous [place] Coma Scale Verbal: Oriented [place] Coma Scale Motor: Obeys Commands [place] Coma Scale Total: 15 Speech: Normal Cranial nerves: Normal. 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 No: Pronator drift Sensory: Normal - Psychological Associated symptoms: Normal affect, Normal mood - Skin Skin Temperature: Warm Skin Moisture: Dry Skin Color: Normal Course - Re-evaluation Re-evalutation: 07/30/19 15:17 Patient presents with intractable headache. Patient neurological exam is unremarkable. Patient has continued headache despite multiple different pain medications and antibiotics. Work-up for the etiology of this headache is negative at this time. After discussion with him and his they feel that the pain and discomfort are such that he is unable to go home. I have discussed the case with the hospitalist and patient will be admitted for intractable headache. Also on the off chance that this was a cluster headache oxygen has been applied but with no relief. - Vital Signs Vital signs: Temp Pulse Resp BP Pulse Ox 98.2 F 15 108/69 96 07/30/19 14:00 07/30/19 14:00 07/30/19 14:00 07/30/19 14:00 - Laboratory Result Diagrams: 07/30/19 13:30 07/30/19 12:29 Laboratory results interpreted by me: 07/30/19 07/30/19 07/30/19 12:29 13:00 13:30 Lymph % (Auto) 12.9 L Sodium 135.9 L Glucose 158 H Total Protein 6.1 L Albumin 3.3 L Urine Glucose (UA) 50 H - Diagnostic Test Radiology reviewed: Image reviewed, Reports reviewed - EKG Interpretation by Tn EKG shows normal: Sinus rhythm Rate: Normal - 79 Rhythm: NSR Norman/QRS: Left axis deviation Discharge - Discharge Clinical Impression: Headache Qualifiers: Headache type: unspecified Headache chronicity pattern: acute headache Intractability: intractable Qualified Code(s): R51 - Headache Condition: Stable Disposition: ADMITTED INPATIENT Admitting Provider: Galilea (Hospitalist) - trav dietrich do admit Unit Admitted: Medical Floor [facility]: [facility] [[facility]] - Follow up as needed
[2019-07-30] MEDS ORDERED: NORMAL SALINE 1000 ML 1,000 ML IV PRN (16:52)
[2019-07-30] MEDS ORDERED: PROMETHAZINE HCL INJ 25 MG/1 ML VIAL IV PRN (16:52)
[2019-07-30] MEDS ORDERED: ONDANSETRON HCL INJ/PF 4 MG/2 ML SDV IV PRN (16:52)
[2019-07-30] MEDS ORDERED: ALBUTEROL SULFATE 0.083% NEB 2.5 MG/3 ML AMPUL NEB PRN (16:52)
[2019-07-30] MEDS ORDERED: MAG HYDROX/AL HYDROX/SIMETH SUSP 30 ML UDCUP PO PRN (16:52)
[2019-07-30] MEDS ORDERED: KETOROLAC TROMETHAMINE INJ/PF 30 MG/1 ML SDV IV PRN (16:57)
[2019-07-30] MEDS ORDERED: SUMATRIPTAN SUCCINATE 100 MG TABLET PO PRN (17:11)
[2019-07-30] MEDS ORDERED: ASPIRIN 325 MG TABLET PO ONE (17:21)
[2019-07-30] MEDS ORDERED: DEXTROSE 40% GEL 15 GM TUBE PO PRN ×2 (17:38)
[2019-07-30] MEDS ORDERED: DEXTROSE 50%-WATER 25 GM/50 ML DISP.SYRIN IV PRN ×2 (17:38)
[2019-07-30] MEDS ORDERED: GLUCAGON,HUMAN RECOMB 1 MG INJ IM PRN (17:38)
[2019-07-30] MEDS ORDERED: HYDRALAZINE HCL INJ/PF 20 MG/1 ML SDV IV PRN (17:40)
[2019-07-30] MEDS ORDERED: METHYLPREDNISOLONE INJ 125 MG/2 ML SDV IV ONE (17:43)
--- NOTE | 2019-07-30 17:44 | PDOC H&P ---
History of Present Illness Admission Date/PCP: 07/30/19 15:31 [facility] Patient complains of: headache History of Present Illness: SABAS LARA is a 68 year old male with a past medical history significant for CAD, unstable angina, hypertension, hypothyroidism, diabetes, chronic pain, neuropathy, alcohol use disorder, and obesity who presented to the emergency department today from urgent care via EMS with complaint of severe headache. The patient reports sudden onset of severe headache first noted while at a follow-up appointment with his PCP yesterday initially resolved to intramuscular Toradol provided in the office but then reoccurred late last night progressively worsening and unresponsive to oral Toradol which prompted him to follow-up in an urgent care today. Of note, patient was recently at [facility] for chest pain rule out w [facility] benign study. Patient also reports that he had a lumbar steroid injection done July 08 by [facility]. He notes that following his steroid injection, he had generalized malaise, fatigue, and progressively worsening vague symptoms including intermittent headaches. He confirms photophobia, phonophobia, touch hypersensitivity, but denies nuchal rigidity and is able to demonstrate chin tuck this afternoon. Evaluation in the emergency department is unremarkable with stable vital signs, normal CBC, chemistry, urinalysis, and head CT. RMSF IgG is pending. He is noted to have an elevated troponin of 0.152. Patient denies active chest pain at this time. EKG reveals Sinus Rhythm w/ nonspecific T-wave changes to lateral leads. He is referred to the hospitalist service for admission and management of the above stated complaints and findings. Past Medical History Cardiac Medical History: Reports: Coronary Artery Disease, Myocardial Infarction - 11/2000, Hyperlipidema, Hypertension Pulmonary Medical History: Denies: Asthma, Bronchitis, Chronic Obstructive Pulmonary Disease (COPD), Pneumonia EENT Medical History: Reports: None Neurological Medical History: Denies: Seizures Endocrine Medical History: Reports: Diabetes Mellitus Type 2, Obesity Renal/ Medical History: Reports: None Malignancy Medical History: Reports: None GI Medical History: Reports: Gastroesophageal Reflux Disease, Hiatal Hernia - LAP MIMI Denies: Hepatitis Musculoskeltal Medical History: Reports: Arthritis Psychiatric Medical History: Reports: Alcohol Dependency Denies: Tobacco Dependency Hematology: Reports: Anemia Denies: Sickle Cell Disease Past Surgical History Past Surgical History: Reports: Cholecystectomy, Coronary Artery Bypass Graft - x4, Other - Recent bilateral browlift surgery and both eyelid lift surgery Denies: Pacemaker Social History Smoking Status: Former Smoker Electronic Cigarette use?: No Frequency of Alcohol Use: None Hx Recreational Drug Use: No Drugs: None Hx Prescription Drug Abuse: No Family History Family History: DM, Hypertension Parental Family History Reviewed: Yes Children Family History Reviewed: Yes Sibling(s) Family History Reviewed.: Yes Medication/Allergy Home Medications: Amitriptyline HCl [Elavil 50 mg Tablet] 50 mg PO QHS 05/20/18 Ascorbic Acid [Vitamin C 500 mg Tablet] 500 mg PO NOON 05/20/18 Atorvastatin Calcium [Lipitor 40 mg Tablet] 40 mg PO QHS 05/20/18 Clopidogrel Bisulfate [Plavix 75 mg Tablet] 75 mg PO DAILY 05/20/18 Ferrous Sulfate 324 mg PO DAILY 05/20/18 Gabapentin [Neurontin] 600 mg PO Q8 05/20/18 Insulin Glargine,Hum.rec.anlog [Lantus Solostar] 40 units SQ DAILY 05/20/18 Isosorbide Mononitrate [Imdur 60 mg Tablet.er] 120 mg PO DAILY 05/20/18 Levothyroxine Sodium [Synthroid 0.05 mg Tablet] 0.05 mg PO Q6AM 05/20/18 Methocarbamol [Robaxin 750 mg Tablet] 750 mg PO Q8 05/20/18 Metoprolol Tartrate [Lopressor 25 mg Tablet] 25 mg PO Q12 05/20/18 Nitroglycerin [Nitrostat 0.4 mg (1/150 Gr) Tabs 25/Bottle] 0.4 mg SL Q5MP PRN 05/20/18 Pantoprazole Sodium [Protonix] 40 mg PO BID 05/20/18 Ranolazine [Ranexa] 1,000 mg PO Q12 05/20/18 Allergies/Adverse Reactions: lisinopril Allergy (Severe, Verified 05/19/18 23:19) TONGUE swelling metformin Allergy (Severe, Verified 05/19/18 23:19) ringing in ears/dizziness metoclopramide HCl [From Reglan] Allergy (Severe, Verified 05/19/18 23:19) Hallucinations red dye [Red Dye] Allergy (Intermediate, Verified 05/19/18 23:19) Rash venlafaxine Allergy (Intermediate, Verified 05/19/18 23:19) coded from other allergy "vemlasaxine" HYPER buspirone [Buspirone] Allergy (Unknown, Verified 05/19/18 23:19) pregabalin Adverse Reaction (Intermediate, Verified 05/19/18 23:19) diarrhea/stomach upset ibuprofen Adverse Reaction (Mild, Verified 05/19/18 23:19) headache aspirin Adverse Reaction (Verified 05/19/18 23:19) VOMITING Review of Systems Constitutional: PRESENT: anorexia, fatigue, headache(s). ABSENT: chills, fever(s), weight gain, weight loss Eyes: ABSENT: visual disturbances Ears: ABSENT: hearing changes Cardiovascular: ABSENT: chest pain, dyspnea on exertion, edema, orthropnea, palpitations Respiratory: ABSENT: cough, hemoptysis Gastrointestinal: ABSENT: abdominal pain, constipation, diarrhea, hematemesis, hematochezia, nausea, vomiting Genitourinary: ABSENT: dysuria, hematuria Musculoskeletal: PRESENT: as per HPI. ABSENT: joint swelling Integumentary: ABSENT: rash, wounds Neurological: ABSENT: abnormal gait, abnormal speech, confusion, dizziness, focal weakness, syncope Psychiatric: ABSENT: anxiety, depression, homidical ideation, suicidal ideation Endocrine: ABSENT: cold intolerance, heat intolerance, polydipsia, polyuria Hematologic/Lymphatic: ABSENT: easy bleeding, easy bruising Physical Exam Vital Signs: Temp Pulse Resp BP Pulse Ox 97.8 F 71 20 119/67 99 07/30/19 17:02 07/30/19 17:02 07/30/19 17:02 07/30/19 17:02 07/30/19 17:02 Intake & Output 07/29/19 07/30/19 07/31/19 06:59 06:59 06:59 Intake Total 1000 Balance 1000 Weight 109 kg General appearance: PRESENT: no acute distress, cooperative, obese, well- developed, well-nourished Head exam: PRESENT: atraumatic, normocephalic Eye exam: PRESENT: conjunctiva pink, EOMI, PERRLA. ABSENT: scleral icterus Ear exam: PRESENT: normal external ear exam Mouth exam: PRESENT: moist, tongue midline Neck exam: PRESENT: full ROM. ABSENT: carotid bruit, lymphadenopathy, meningismus, tenderness Respiratory exam: PRESENT: clear to auscultation gennaro, symmetrical, unlabored. ABSENT: rales, rhonchi, wheezes Cardiovascular exam: PRESENT: RRR, +S1, +S2. ABSENT: diastolic murmur, rubs, systolic murmur Pulses: PRESENT: normal dorsalis pedis pul Vascular exam: PRESENT: normal capillary refill GI/Abdominal exam: PRESENT: normal bowel sounds, soft. ABSENT: distended, gu arding, mass, organolmegaly, rebound, tenderness Rectal exam: PRESENT: deferred Extremities exam: PRESENT: full ROM. ABSENT: calf tenderness, clubbing, pedal edema Neurological exam: PRESENT: alert, awake, oriented to person, oriented to place, oriented to time, oriented to situation, CN II-XII grossly intact. ABSENT: mot or sensory deficit Psychiatric exam: PRESENT: appropriate affect, normal mood. ABSENT: homicidal ideation, suicidal ideation Skin exam: PRESENT: dry, intact, warm. ABSENT: cyanosis, rash Results Laboratory Results: 07/30/19 13:30 07/30/19 12:29 07/30/19 07/30/19 07/30/19 12:29 12:29 13:00 WBC Cancelled RBC Cancelled Hgb Cancelled Hct Cancelled MCV Cancelled MCH Cancelled MCHC Cancelled RDW Cancelled Plt Count Cancelled Seg Neutrophils % Cancelled Sodium 135.9 L Potassium 4.4 Chloride 99 Carbon Dioxide 27 Anion Gap 10 BUN 13 Creatinine 0.74 Est GFR ( Amer) > 60 Glucose 158 H Calcium 8.6 Total Bilirubin 0.8 AST 23 Alkaline Phosphatase 53 Total Protein 6.1 L Albumin 3.3 L Urine Color YELLOW Urine Appearance CLEAR Urine pH 6.0 Ur Specific [place] 1.006 Urine Protein NEGATIVE Urine Glucose (UA) 50 H Urine Ketones NEGATIVE Urine Blood NEGATIVE Urine Nitrite NEGATIVE Ur Leukocyte Esterase NEGATIVE Urine WBC (Auto) 0 Urine RBC (Auto) 1 07/30/19 13:30 WBC 8.2 RBC 4.53 Hgb 14.2 Hct 40.3 MCV 89 MCH 31.3 MCHC 35.3 RDW 13.5 Plt Count 212 Seg Neutrophils % 76.9 Sodium Potassium Chloride Carbon Dioxide Anion Gap BUN Creatinine Est GFR ( Amer) Glucose Calcium Total Bilirubin AST Alkaline Phosphatase Total Protein Albumin Urine Color Urine Appearance Urine pH Ur Specific [place] Urine Protein Urine Glucose (UA) Urine Ketones Urine Blood Urine Nitrite Ur Leukocyte Esterase Urine WBC (Auto) Urine RBC (Auto) 07/30/19 12:29 Troponin I 0.152 Impressions: Head CT 07/30/19 12:02 IMPRESSION: Mild chronic microvascular ischemia. No acute intracranial imaging findings. Chronic maxillary sinus disease. EVIDENCE OF ACUTE STROKE: NO. Assessment and Plan - Diagnosis (1) Headache Qualifiers: Headache type: unspecified Headache chronicity pattern: acute headache Intractability: intractable Qualified Code(s): R51 - Headache Is this a current diagnosis for this admission?: Yes Plan: Patient is admitted for intractable headache; not responsive to IV fluid bolus, Fioricet, IV morphine. Head CT demonstrated chronic microvascular ischemic changes and chronic sinusitis. No acute findings. Patient family member do report that his headache did respond well to IM Toradol at urgent care yesterday, nonresponsive to oral Toradol overnight. Sed rate and CRP are pending. RSMF IgG pending. We will continue gentle IV fluids. Continue supplemental oxygen which may be beneficial if this is a cluster headache. We will avoid narcotic medications as much as possible to prevent rebound headache. Scheduled aspirin. PRN IV Toradol. Trial Imitrex. The patient is afebrile with a normal WBC and denies nuchal rigidity; will need to consider LP if he develops leukocytosis or fever. However, should also consider Post-dural puncture headache (patient reportedly had lumbar steroid injection as outpatient 2 weeks ago; this would mean there would have been a possible complication during the procedure. Patient does not remember there being a report of difficult injection). Although this would be a late presentation, he does report first onset of malaise, subjective fever, and headache the day following injection and reports that while other symptoms have improved, his headache has worsened. In which case, a diagnostic LP would worsen his symptoms. I am not convinced that a Blood Patch would be beneficial at this point as these headaches do typically spontaneously resolve within 1 week. (2) Elevated troponin Is this a current diagnosis for this admission?: Yes Plan: Unclear etiology; patient denies current chest discomfort. He does have Hx of Unstable Angina and was discharged from [facility] 3 days ago after observational admission for chest pain rule out. Per patient, work-up was reportedly normal. Troponin is noted to be elevated to 0.152 He will be monitored on continuous cardiac telemetry. Provide a daily aspirin and statin therapy. Continue to trend troponins. We will need to confirm patient's established medical office asst and ensure he has timely follow-up discharge. (3) CAD (coronary artery disease) Qualifiers: Coronary Disease-Associated Artery/Lesion type: unspecified vessel or lesion type [place] vs. transplanted heart: [place] heart Associated angina: angina presence unspecified Qualified Code(s): I25.10 - Atherosclerotic heart disease of [place] coronary artery without angina pectoris Is this a current diagnosis for this admission?: Yes Plan: Evaluation as above. Cardiac diet. Daily aspirin and statin therapy. Continue home dose antiplatelets and antihypertensives once reconciled. (4) Diabetes mellitus Qualifiers: Diabetes mellitus type: type 2 Diabetes mellitus terminal clerk insulin use: unspecified mcc insulin use status Diabetes mellitus complication status: with unspecified complications Is this a current diagnosis for this admission?: Yes Plan: Consistent carb/cardiac diet. Accu-Cheks before meals and at bedtime with Humalog for sliding scale coverage. Hypoglycemia protocol in place. (5) Hypertension Qualifiers: Hypertension type: essential hypertension Qualified Code(s): I10 - Essential (primary) hypertension Is this a current diagnosis for this admission?: Yes Plan: We will continue home medication regiment once reconciled. Cardiac diet. IV hydralazine as needed for blood pressure control. (6) Hypothyroidism Is this a current diagnosis for this admission?: Yes Plan: We will continue home dose levothyroxine once reconciled. - Time Time Spent with patient: 35 or more minutes Medications reviewed and adjusted accordingly: Yes Anticipated discharge: Home Within: within 24 hours
[2019-07-30] MEDS: ACETAMINOPHEN 325 MG TABLET PO SCH ×2 (18:46→23:40)
[2019-07-30 18:53] LABS: CREATINE KINASE MB 1.63 ng/mL (<4.55)
[2019-07-30 18:56] LABS: TROPONIN I 0.096 ng/mL
[2019-07-30] MEDS ORDERED: ATORVASTATIN CALCIUM 40 MG TABLET PO SCH (22:00)
[2019-07-30] MEDS: INSULIN LISPRO 100 UNIT/ML 3 ML VIAL SUBCUT SCH (22:11)
[2019-07-30] MEDS: HEPARIN SOD (PORCINE) 5,000 UNIT/ML 1 ML VIAL SUBCUT SCH (22:12)
[2019-07-30] MEDS: FAMOTIDINE INJ/PF 20 MG/2 ML SDV IV SCH (22:12)
[2019-07-31 00:15] LABS: CREATINE KINASE MB 1.94 ng/mL (<4.55); TROPONIN I 0.057 ng/mL
[2019-07-31] MEDS: HEPARIN SOD (PORCINE) 5,000 UNIT/ML 1 ML VIAL SUBCUT SCH (05:01)
[2019-07-31] MEDS: ACETAMINOPHEN 325 MG TABLET PO SCH (05:55)
[2019-07-31 06:19] LABS: HEMATOCRIT 41.6 % (37.9-51.0); HEMOGLOBIN 14.7 g/dL (13.5-17.0); MEAN CORPUSCULAR HEMOGLOBIN 31.3 pg (27.0-33.4); MEAN CORPUSCULAR HGB CONC 35.4 g/dL (32.0-36.0); MEAN CORPUSCULAR VOLUME 88 fl (80-97); PLATELET COUNT 223 10^3/uL (150-450); RED BLOOD COUNT 4.71 10^6/uL (4.35-5.55); RED CELL DISTRIBUTION WIDTH 13.6 % (11.5-14.0); WHITE BLOOD COUNT 8.5 10^3/uL (4.0-10.5)
[2019-07-31 07:05] LABS: ANION GAP 11 (5-19); BLOOD UREA NITROGEN 14 mg/dL (7-20); CALCIUM 9.2 mg/dL (8.4-10.2); CARBON DIOXIDE 23 mmol/L (22-30); CHLORIDE 106 mmol/L (98-107); CREATINE KINASE 42 U/L (55-170); GLUCOSE 336 mg/dL (75-110); POTASSIUM 4.4 mmol/L (3.6-5.0)
[2019-07-31 07:11] LABS: CREATINE KINASE MB 2.08 ng/mL (<4.55); TROPONIN I 0.031 ng/mL
[2019-07-31 08:54] VITALS: BP 150/78
[2019-07-31] MEDS: FAMOTIDINE INJ/PF 20 MG/2 ML SDV IV SCH (09:21)
[2019-07-31] MEDS: INSULIN LISPRO 100 UNIT/ML 3 ML VIAL SUBCUT SCH (09:21)
[2019-07-31] MEDS ORDERED: ASPIRIN 81 MG TABLET, CHEWABLE PO SCH (10:00)
--- NOTE | 2019-07-31 23:57 | EKG REPORT ---
SEVERITY:- ABNORMAL ECG - SINUS OR ECTOPIC ATRIAL RHYTHM BORDERLINE LEFT AXIS DEVIATION NONSPECIFIC T ABNORMALITIES, LATERAL LEADS : Confirmed by: Mike Mora 31-Jul-2019 23:56:20
[2019-08-02 07:33] LABS: ROCKY MTN SPOTTED FEV IGG EIA Positive (Negative)
--- NOTE | 2019-08-04 17:38 | PDOC DISCHARGE SUMMARY ---
Impression - Admit/DC Date/PCP Admission Date/Primary Care Provider: 07/30/19 15:31 [facility] Discharge Date: 07/31/19 - Discharge Diagnosis (1) Headache Is this a current diagnosis for this admission?: Yes (2) Elevated troponin Is this a current diagnosis for this admission?: Yes (3) CAD (coronary artery disease) Is this a current diagnosis for this admission?: Yes (4) Diabetes mellitus Is this a current diagnosis for this admission?: Yes (5) Hypertension Is this a current diagnosis for this admission?: Yes (6) Hypothyroidism Is this a current diagnosis for this admission?: Yes - Additional Information Resuscitation Status: Full Code Discharge Diet: Cardiac, Diabetic Discharge Activity: Activity As Tolerated, Balance Activity w/Rest Referrals: [facility] [Primary Care Provider] - 08/07/19 11:30 am Prescriptions: Sumatriptan Succinate [Imitrex 100 mg Tablet] 100 mg PO ASDIR PRN #6 tablet PRN Reason: Home Medications: Ascorbic Acid [Vitamin C 500 mg Tablet] 500 mg PO NOON 05/20/18 Atorvastatin Calcium [Lipitor 40 mg Tablet] 40 mg PO QPM 05/20/18 Clopidogrel Bisulfate [Plavix 75 mg Tablet] 75 mg PO DAILY 05/20/18 Ferrous Sulfate 324 mg PO DAILY 05/20/18 Gabapentin [Neurontin] 600 mg PO QID 05/20/18 Insulin Glargine,Hum.rec.anlog [Lantus Solostar] 90 units SQ DAILY 05/20/18 Isosorbide Mononitrate [Imdur 60 mg Tablet.er] 120 mg PO DAILY 05/20/18 Methocarbamol [Robaxin 750 mg Tablet] 750 mg PO Q8 05/20/18 Metoprolol Tartrate [Lopressor 25 mg Tablet] 25 mg PO Q12 05/20/18 Nitroglycerin [Nitrostat 0.4 mg (1/150 Gr) Tabs 25/Bottle] 0.4 mg SL Q5MP PRN 05/20/18 Pantoprazole Sodium [Protonix] 40 mg PO BID 05/20/18 Ranolazine [Ranexa] 1,000 mg PO BID@12,18 05/20/18 Alogliptin Benzoate [Alogliptin] 25 mg PO NOON 07/30/19 Donepezil HCl [Aricept] 10 mg PO DAILY 07/30/19 Finasteride [Proscar 5 mg Tablet] 5 mg PO DAILY 07/30/19 Flunisolide [Nasarel] 2 puff NS QHS 07/30/19 Levothyroxine Sodium [Synthroid 0.075 mg Tablet] 0.075 mg PO Q6AM 07/30/19 Linaclotide [Linzess 145 Mcg Capsule] 145 mcg PO DAILY 07/30/19 Polyethylene Glycol 3350 [Miralax Powder 17 gm/Packet] 1 packet PO DAILY 07/30/19 Terazosin HCl [Hytrin] 2 mg PO QHS 07/30/19 Tramadol HCl [Ultram 50 mg Tablet] 50 mg PO QHS 07/30/19 Triamcinolone Acetonide [Aristocort 0.1% Cream] 1 applic TP BID 07/30/19 Sumatriptan Succinate [Imitrex 100 mg Tablet] 100 mg PO ASDIR PRN #6 tablet 07/31/19 History of Present Illiness History of Present Illness: SABAS LARA is a 68 year old male with a past medical history significant for CAD, unstable angina, hypertension, hypothyroidism, diabetes, chronic pain, neuropathy, alcohol use disorder, and obesity who presented to the emergency department today from urgent care via EMS with complaint of severe headache. The patient reports sudden onset of severe headache first noted while at a follow-up appointment with his PCP yesterday initially resolved to intramuscular Toradol provided in the office but then reoccurred late last night progressively worsening and unresponsive to oral Toradol which prompted him to follow-up in an urgent care today. Of note, patient was recently at [facility] for chest pain rule out with benign study. Patient also reports that he had a lumbar steroid injection done July 08 by [facility]. He notes that following his steroid injection, he had generalized malaise, fatigue, and progressively worsening vague symptoms including intermittent headaches. He confirms photophobia, phonophobia, touch hypersensitivity, but denies nuchal rigidity and is able to demonstrate chin tuck this afternoon. Evaluation in the emergency department is unremarkable with stable vital signs, normal CBC, chemistry, urinalysis, and head CT. RMSF IgG is pending. He is noted to have an elevated troponin of 0.152. Patient denies active chest pain at this time. EKG reveals Sinus Rhythm w/ nonspecific T-wave changes to lateral leads. He is referred to the hospitalist service for admission and management of the above stated complaints and findings. Hospital Course Hospital Course: The patient was admitted to the medical floor. He was provided IV fluids and supplemental oxygen. Narcotic medications were avoided to prevent rebound headaches. He was placed on scheduled Tylenol with as needed Toradol and Imitrex ordered. The patient did not require PRN medications for management of his headache overnight. Routine laboratory evaluation by the emergency department provider revealed a troponin of 0.152; patient denied active chest pain or palpitations. Of note, he had been admitted to [facility] 3 days previously for chest pain rule out with reportedly normal stress test. EKG was negative for ST segment changes. He remained chest pain-free overnight with downward trending his troponins. 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 The patient's remaining chronic medical conditions remained stable. The following day, the patient was found to be in stable condition, pain-free, and ambulatory on room air. He is requesting to be discharged to home. Therefore, he is discharged home in stable condition. He is advised to follow-up with his primary care provider within 1 week. He is instructed to take his medications as prescribed. He is advised to avoid alcohol and other known migraine triggers. He is provided a prescription for Imitrex for migraine and educated on use. He is encouraged to return to the emergency department as needed for any concerning symptoms. Physical Exam Vital Signs: Temp Pulse Resp BP Pulse Ox 97.6 F 84 18 150/78 H 97 07/31/19 10:56 07/31/19 10:56 07/31/19 10:56 07/31/19 10:56 07/31/19 10:56 General appearance: PRESENT: no acute distress, obese, well-developed, well- nourished Head exam: PRESENT: atraumatic, normocephalic Eye exam: PRESENT: conjunctiva pink, EOMI, PERRLA. ABSENT: scleral icterus Ear exam: PRESENT: normal external ear exam Mouth exam: PRESENT: moist, tongue midline Respiratory exam: PRESENT: clear to auscultation gennaro, symmetrical, unlabored. ABSENT: rales, rhonchi, wheezes Cardiovascular exam: PRESENT: RRR, +S1, +S2. ABSENT: diastolic murmur, rubs, systolic murmur Pulses: PRESENT: normal dorsalis pedis pul Vascular exam: PRESENT: normal capillary refill GI/Abdominal exam: PRESENT: normal bowel sounds, soft. ABSENT: distended, guarding, mass, organolmegaly, rebound, tenderness Rectal exam: PRESENT: deferred Extremities exam: PRESENT: full ROM. ABSENT: calf tenderness, clubbing, pedal edema Neurological exam: PRESENT: alert, awake, oriented to person, oriented to place, oriented to time, oriented to situation, CN II-XII grossly intact. ABSENT: motor sensory deficit Psychiatric exam: PRESENT: appropriate affect, normal mood. ABSENT: homicidal ideation, suicidal ideation Skin exam: PRESENT: dry, intact, warm. ABSENT: cyanosis, rash Results Laboratory Results: WBC 8.5 10^3/uL (4.0-10.5) 07/31/19 05:37 RBC 4.71 10^6/uL (4.35-5.55) 07/31/19 05:37 Hgb 14.7 g/dL (13.5-17.0) 07/31/19 05:37 Hct 41.6 % (37.9-51.0) 07/31/19 05:37 MCV 88 fl (80-97) 07/31/19 05:37 MCH 31.3 pg (27.0-33.4) 07/31/19 05:37 MCHC 35.4 g/dL (32.0-36.0) 07/31/19 05:37 RDW 13.6 % (11.5-14.0) 07/31/19 05:37 Plt Count 223 10^3/uL (150-450) 07/31/19 05:37 Lymph % (Auto) 12.9 % (13-45) L 07/30/19 13:30 [place] % (Auto) 8.0 % (3-13) 07/30/19 13:30 Eos % (Auto) 1.7 % (0-6) 07/30/19 13:30 Baso % (Auto) 0.5 % (0-2) 07/30/19 13:30 Absolute Neuts (auto) 6.3 10^3/uL (1.7-8.2) 07/30/19 13:30 Absolute Lymphs (auto) 1.1 10^3/uL (0.5-4.7) 07/30/19 13:30 Absolute Monos (auto) 0.7 10^3/uL (0.1-1.4) 07/30/19 13:30 Absolute Eos (auto) 0.1 10^3/uL (0.0-0.6) 07/30/19 13:30 Absolute Basos (auto) 0.0 10^3/uL (0.0-0.2) 07/30/19 13:30 Seg Neutrophils % 76.9 % (42-78) 07/30/19 13:30 Platelet Estimate Cancelled 07/30/19 12:29 ESR 68 mm/hr (0-20) H 07/30/19 13:30 PT Cancelled 07/30/19 12:29 INR Cancelled 07/30/19 12:29 INR (Anticoag Therapy) Cancelled 07/30/19 12:29 APTT Cancelled 07/30/19 12:29 Sodium 139.7 mmol/L (137-145) 07/31/19 05:37 Potassium 4.4 mmol/L (3.6-5.0) 07/31/19 05:37 Chloride 106 mmol/L (98-107) 07/31/19 05:37 Carbon Dioxide 23 mmol/L (22-30) 07/31/19 05:37 Anion Gap 11 (5-19) 07/31/19 05:37 BUN 14 mg/dL (7-20) 07/31/19 05:37 Creatinine 0.69 mg/dL (0.52-1.25) 07/31/19 05:37 Est GFR ( Amer) > 60 (>60) 07/31/19 05:37 Est GFR (MDRD) Non-Af > 60 (>60) 07/31/19 05:37 Glucose 336 mg/dL (75-110) H 07/31/19 05:37 POC Glucose 295 mg/dL (70-110) H 07/31/19 06:01 Calcium 9.2 mg/dL (8.4-10.2) 07/31/19 05:37 Total Bilirubin 0.8 mg/dL (0.2-1.3) 07/30/19 12:29 Direct Bilirubin 0.2 mg/dL (0.0-0.4) 07/30/19 12:29 Neonat Total Bilirubin Not Reportable 07/30/19 12:29 Neonat Direct Bilirubin Not Reportable 07/30/19 12:29 Neonat Indirect Bili Not Reportable 07/30/19 12:29 AST 23 U/L (17-59) 07/30/19 12:29 ALT 23 U/L (<50) 07/30/19 12:29 Alkaline Phosphatase 53 U/L (38-126) 07/30/19 12:29 Creatine Kinase 42 U/L (55-170) L 07/31/19 05:37 CK-MB (CK-2) 2.08 ng/mL (<4.55) 07/31/19 05:37 Troponin I 0.031 ng/mL 07/31/19 05:37 C-Reactive Protein 64.3 mg/L (<10.0) H 07/30/19 12:29 Total Protein 6.1 g/dL (6.3-8.2) L 07/30/19 12:29 Albumin 3.3 g/dL (3.5-5.0) L 07/30/19 12:29 Urine Color YELLOW 07/30/19 13:00 Urine Appearance CLEAR 07/30/19 13:00 Urine pH 6.0 (5.0-9.0) 07/30/19 13:00 Ur Specific [place] 1.006 07/30/19 13:00 Urine Protein NEGATIVE mg/dL (NEGATIVE) 07/30/19 13:00 Urine Glucose (UA) 50 mg/dL (NEGATIVE) H 07/30/19 13:00 Urine Ketones NEGATIVE mg/dL (NEGATIVE) 07/30/19 13:00 Urine Blood NEGATIVE (NEGATIVE) 07/30/19 13:00 Urine Nitrite NEGATIVE (NEGATIVE) 07/30/19 13:00 Urine Bilirubin NEGATIVE (NEGATIVE) 07/30/19 13:00 Urine Urobilinogen NEGATIVE mg/dL (<2.0) 07/30/19 13:00 Ur Leukocyte Esterase NEGATIVE (NEGATIVE) 07/30/19 13:00 Urine WBC (Auto) 0 /HPF 07/30/19 13:00 Urine RBC (Auto) 1 /HPF 07/30/19 13:00 Urine Ascorbic Acid NEGATIVE (NEGATIVE) 07/30/19 13:00 Spotted Fever Grp IgG Positive (Negative) H 11/05/19 12:29 [place] IgG Ab 1:64 (Neg <1:64) H 07/30/19 12:29 Slides for Path Review Cancelled 07/30/19 12:29 07/30/19 07/30/19 07/30/19 12:29 17:50 23:39 CK-MB (CK-2) 1.63 1.94 Troponin I 0.152 0.096 0.057 07/31/19 05:37 CK-MB (CK-2) 2.08 Troponin I 0.031 Impressions: Head CT 07/30/19 12:02 IMPRESSION: Mild chronic microvascular ischemia. No acute intracranial imaging findings. Chronic maxillary sinus disease. EVIDENCE OF ACUTE STROKE: NO. Plan Plan of Treatment: The patient is discharged home in stable condition. He is advised to take his medications as prescribed. He has been educated on migraine triggers instructed to avoid known triggers. Additionally, he was educated about chocolate, caffeine, tobacco products, alcohol, nitrate foods - pork, lunch meat, becoming overly tired/irregular sleep schedule, etc. being possible migraine triggers. He was advised to keep a headache diary and to present this to his PCP at his follow-up appointment. He was instructed to avoid alcohol. He is encouraged to return to emergency department as needed for concerning symptoms. Time Spent: Greater than 30 Minutes Stroke Is this a Stroke Patient?: No Acute Heart Failure - Is this a Heart Failure Patient?: No
== END 2019-07-31 11:27 | disposition home or self-care (01) ==
LOC: ER 11:47 → EH 15:31 → INTOOBSV 15:31 → 4S 16:39
PROVIDERS: ADMIT Internal Medicine; ATTEND Internal Medicine
DX: R51 Headache (principal); R79.89 Other specified abnormal findings of blood chemistry; I25.10 Atherosclerotic heart disease of native coronary artery without angina pectoris; E11.40 Type 2 diabetes mellitus with diabetic neuropathy, unspecified; I10 Essential (primary) hypertension; E03.9 Hypothyroidism, unspecified; G89.29 Other chronic pain; R53.81 Other malaise; R53.83 Other fatigue; H53.149 Visual discomfort, unspecified; R20.8 Other disturbances of skin sensation; E66.9 Obesity, unspecified; E78.5 Hyperlipidemia, unspecified; R63.0 Anorexia; J32.0 Chronic maxillary sinusitis; I67.82 Cerebral ischemia; R53.1 Weakness; R41.0 Disorientation, unspecified; R05 Cough; Z79.4 Long term (current) use of insulin; Z79.02 Long term (current) use of antithrombotics/antiplatelets; Z79.899 Other long term (current) drug therapy; Z95.1 Presence of aortocoronary bypass graft; Z87.891 Personal history of nicotine dependence
CPT/HCPCS: 93005; 99284; 96361; 96374; 36415 ×2; 82553 ×2; 82962 ×2; 82550 ×2; 85025; 85027; 85652; 86140; 80048; 80053; 81001; 84484 ×2; 86757 ×2; 70450; 93010; 94660; G0378 ×2; J3490; J1815; J2930; J2270; J7030; S0028 ×2

== ENCOUNTER 2019-08-04 17:33 | Emergency (ER) | payer OTHER, MEDICARE ==
[2019-08-04 17:40] VITALS: BP 131/71
== END 2019-08-04 18:06 | disposition left against medical advice (07) ==
LOC: ER 17:33
DX: Z53.21 Procedure and treatment not carried out due to patient leaving prior to being seen by health care provider (principal)

== ENCOUNTER → 2019-08-19 | Outpatient (CLI) | payer OTHER | LOC: OD 10:50 | PROVIDERS: ATTEND Otolaryngology | DX: J32.9 Chronic sinusitis, unspecified (principal) | CPT/HCPCS: 36415; 82785; 86003 ==

== ENCOUNTER → 2019-08-28 | Outpatient (CLI) | payer OTHER ==
[2019-08-28 13:43] LABS: ABSOLUTE LYMPHOCYTES (AUTO) 1.3 10^3/uL (0.5-4.7); ABSOLUTE NEUT (AUTO) 11.6 10^3/uL (1.7-8.2); BASOPHILS % (AUTO) 0.2 % (0-2); EOSINOPHILS % (AUTO) 0.2 % (0-6); HEMATOCRIT 40.4 % (37.9-51.0); HEMOGLOBIN 13.7 g/dL (13.5-17.0); LYMPHOCYTES % (AUTO) 9.2 % (13-45); MEAN CORPUSCULAR HEMOGLOBIN 30.5 pg (27.0-33.4); MEAN CORPUSCULAR HGB CONC 33.9 g/dL (32.0-36.0); MEAN CORPUSCULAR VOLUME 90 fl (80-97); MONOCYTES % (AUTO) 7.2 % (3-13); PLATELET COUNT 204 10^3/uL (150-450); RED BLOOD COUNT 4.49 10^6/uL (4.35-5.55); RED CELL DISTRIBUTION WIDTH 14.4 % (11.5-14.0); SEGMENTED NEUTROPHILS % (AUTO) 83.2 % (42-78); TOTAL CELLS COUNTED % (AUTO) 100 %
[2019-08-28 14:03] LABS: APPEARANCE,URINE CLEAR; BILIRUBIN,URINE NEGATIVE (NEGATIVE); CALCIUM OXALATE CRYSTALS,URINE FEW /HPF; GLUCOSE, URINE 50 mg/dL (NEGATIVE); KETONES,URINE NEGATIVE (NEGATIVE); LEUKOCYTE ESTERASE,URINE NEGATIVE (NEGATIVE); NITRITE,URINE POSITIVE (NEGATIVE); PROTEIN,URINE 30 mg/dL (NEGATIVE); URINE SPECIFIC GRAVITY 1.039
[2019-08-28 14:04] LABS: COLOR,URINE ORANGE
[2019-08-28 14:05] LABS: ANION GAP 8 (5-19); BLOOD UREA NITROGEN 23 mg/dL (7-20); CARBON DIOXIDE 31 mmol/L (22-30); CHLORIDE 100 mmol/L (98-107); GLUCOSE 174 mg/dL (75-110); POTASSIUM 4.2 mmol/L (3.6-5.0)
== END ==
LOC: OD 13:13
PROVIDERS: ATTEND Orthopaedic Surgery
DX: M17.12 Unilateral primary osteoarthritis, left knee (principal); I10 Essential (primary) hypertension; E11.9 Type 2 diabetes mellitus without complications
CPT/HCPCS: 36415; 80048; 81001; 83036; 85025

== ENCOUNTER 2019-09-23 08:45 | Inpatient (IN) | payer OTHER, MEDICARE ==
[~2019-09-23 08:45] MED LIST changes: +BUPIVACAINE INJ/PF LIPOSOME/PF 266 MG/20 ML SDV INJ PRN; +CEFAZOLIN INJ 1 GM VIAL IV PRN; +DEXAMETHASONE SOD PHOSPHATE INJ 4 MG/1 ML VIAL ONE; +FENTANYL CITRATE INJ/PF 100 MCG/2 ML AMPUL ONE; +IBUPROFEN 800 MG in NORMAL SALINE 250 ML IV PRN; -KETOROLAC TROMETHAMINE 0.45% 4 DROP/0.4 ML DROPERETTE OS PRN; +LIDOCAINE 0.5% INJ-PF (5 MG/ML) 50 ML SDV SUBCUT PRN; +MIDAZOLAM 2 MG/2 ML INJ ONE; +ONDANSETRON HCL INJ/PF 4 MG/2 ML SDV ONE; +OXYCODONE HCL SR 10 MG TABLET PO PRN; +PANTOPRAZOLE SODIUM 20 MG TABLET.DR PO PRN; +PROPOFOL INJ 200 MG/20 ML VIAL IV ONE; +TRANEXAMIC ACID INJ/PF 1,000 MG/10 ML SDV ONE; +VANCOMYCIN HCL 1,000 MG in DEXTROSE 5%-WATER 250 ML IV PRN
[2019-09-23] MEDS ORDERED: PANTOPRAZOLE SODIUM 20 MG TABLET.DR PO ONE (09:23)
[2019-09-23] MEDS ORDERED: OXYCODONE HCL SR 10 MG TABLET PO ONE (09:23)
[2019-09-23] MEDS ORDERED: CEFAZOLIN INJ 1 GM VIAL ONE (09:24)
[2019-09-23 11:25] LABS: ABSOLUTE BASOPHILS # (AUTO) 0.1 10^3/uL (0.0-0.2); ABSOLUTE EOSINOPHILS # (AUTO) 0.2 10^3/uL (0.0-0.6); ABSOLUTE LYMPHOCYTES (AUTO) 1.3 10^3/uL (0.5-4.7); ABSOLUTE MONOCYTES (AUTO) 0.5 10^3/uL (0.1-1.4); ABSOLUTE NEUT (AUTO) 4.5 10^3/uL (1.7-8.2); BASOPHILS % (AUTO) 0.9 % (0-2); EOSINOPHILS % (AUTO) 2.3 % (0-6); HEMATOCRIT 37.4 % (37.9-51.0); LYMPHOCYTES % (AUTO) 19.6 % (13-45); MEAN CORPUSCULAR HEMOGLOBIN 31.4 pg (27.0-33.4); MEAN CORPUSCULAR HGB CONC 34.9 g/dL (32.0-36.0); MEAN CORPUSCULAR VOLUME 90 fl (80-97); PLATELET COUNT 193 10^3/uL (150-450); RED BLOOD COUNT 4.16 10^6/uL (4.35-5.55); RED CELL DISTRIBUTION WIDTH 14.5 % (11.5-14.0); SEGMENTED NEUTROPHILS % (AUTO) 69.2 % (42-78); TOTAL CELLS COUNTED % (AUTO) 100 %; WHITE BLOOD COUNT 6.6 10^3/uL (4.0-10.5)
[2019-09-23 11:28] LABS: INTERNATIONAL RATION (INR) 1.01; PROTHROMBIN TIME 13.3 SEC (11.4-15.4)
[2019-09-23 11:29] LABS: PARTIAL THROMBOPLASTIN TIME 33.7 SEC (23.5-35.8)
[2019-09-23 11:43] LABS: ANION GAP 10 (5-19); BLOOD UREA NITROGEN 12 mg/dL (7-20); CALCIUM 8.9 mg/dL (8.4-10.2); CARBON DIOXIDE 30 mmol/L (22-30); CHLORIDE 101 mmol/L (98-107); GLUCOSE 139 mg/dL (75-110); POTASSIUM 4.2 mmol/L (3.6-5.0)
[2019-09-23] MEDS: BUPIVACAINE INJ/PF LIPOSOME/PF 266 MG/20 ML SDV ONE ×2 (12:37→12:51)
[2019-09-23] MEDS ORDERED: MORPHINE SULFATE 10 MG/ML INJ IV PRN (12:47)
[2019-09-23] MEDS ORDERED: FENTANYL CITRATE INJ/PF 100 MCG/2 ML AMPUL IV PRN ×3 (12:47)
[2019-09-23] MEDS ORDERED: MEPERIDINE HCL/PF INJ 25 MG/1 ML DISP.SYRIN IV PRN (12:47)
[2019-09-23] MEDS ORDERED: DIPHENHYDRAMINE HCL 50 MG/ML VIAL IV PRN ×2 (12:47→13:06)
[2019-09-23] MEDS ORDERED: ONDANSETRON HCL INJ/PF 4 MG/2 ML SDV IV PRN ×2 (12:47→13:06)
[2019-09-23] MEDS ORDERED: PROMETHAZINE HCL INJ 25 MG/1 ML VIAL IV PRN ×2 (12:47)
[2019-09-23] MEDS ORDERED: NITROGLYCERIN 0.4 MG/TAB 25 TAB/BOTTLE SL PRN (13:03)
--- NOTE | 2019-09-23 13:03 | Operative Report ---
Operative Report DATE OF SURGERY: 09/23/19 PREOPERATIVE DIAGNOSIS: Left knee arthritis OPERATION: Left knee arthroplasty SURGEON: DINORAH TOLLIVER ANESTHESIA: Spinal TISSUE REMOVED OR ALTERED: Bone to pathology ESTIMATED BLOOD LOSS: 75 PROCEDURE: Implants used: Femur: Brandi triathlon size 7 CR uncemented femur Tibia: 6 uncemented tibia Tibial liner: 9 mm CS insert Patella: 38 mm oval patella uncemented Procedure with the patient supine on the operating table the left the limb is prepped and draped in a sterile fashion. The limb was elevated for exsanguination and the tourniquet inflated to 280 torr. A standard midline median parapatellar approach the knee is taken. Access is gained to the femoral canal through the intercondylar notch. Intramedullary alignment instrumentation used to resect 10 mm of distal femur in 5 of valgus. Sizing guide indicated a size 7 femur. Appropriate cutting jig is then used to fashion anterior posterior and chamfer cuts. A trial reduction femurs performed and this is judged to be adequate. Attention was next turned to the tibia. Using an extra medullary alignment system 9 millimeters was resected off the lateral tibial plateau. This is sized to a size 6 tibia. A trial reduction was now performed with a 7 femur and a 6 tibia using a 9 millimeters spacer. It is full extension and central patellofemoral tracking. The articular surface the patella was next resected using an oscillating saw. All trial implants were removed. The above implants are impacted into position. The tourniquet was deflated hemostasis obtained the wound is then closed in layers using interrupted Vicryl followed by betsey. A sterile compressive dressing was applied and the patient returned to recovery room in satisfactory condition.
[2019-09-23] MEDS ORDERED: RINGERS SOLUTION,LACTATED 1,000 ML IV PRN (13:06)
[2019-09-23] MEDS ORDERED: ONDANSETRON 4 MG TAB.RAPDIS PO PRN (13:06)
[2019-09-23] MEDS ORDERED: MAG HYDROX/AL HYDROX/SIMETH SUSP 30 ML UDCUP PO PRN (13:06)
[2019-09-23] MEDS ORDERED: ZOLPIDEM TARTRATE 5 MG TABLET PO PRN (13:06)
--- NOTE | 2019-09-23 13:16 | EKG REPORT ---
SEVERITY:- NORMAL ECG - SINUS RHYTHM : Confirmed by: Luis Carlos Talavera MD 23-Sep-2019 13:16:24
[2019-09-23] MEDS ORDERED: PROPOFOL INJ 200 MG/20 ML VIAL IV ONE (14:59)
[2019-09-23] MEDS ORDERED: TRANEXAMIC ACID INJ/PF 1,000 MG/10 ML SDV IV ONE (15:00)
[2019-09-23] MEDS ORDERED: TRANEXAMIC ACID INJ/PF 1,000 MG/10 ML SDV ONE (15:16)
--- NOTE | 2019-09-23 15:24 | RADIOLOGY REPORT (SQ) ---
EXAM DESCRIPTION: KNEE LEFT 2 VIEWS COMPLETED DATE/TIME: 09/23/2019 2:47 pm REASON FOR STUDY: Post OP -Long Cassette in PACU M17.12 UNILATERAL PRIMARY OSTEOARTHRITIS, LEFT KNE E COMPARISON: None. NUMBER OF VIEWS: Two view(s). TECHNIQUE: Digital radiographic images of the left knee post-procedure. LIMITATIONS: None. FINDINGS: BONES: No worrisome or unexpected findings post-procedure. DEVICE: Total knee arthroplasty. SOFT TISSUES: No worrisome findings. Expected postoperative soft tissue changes. IMPRESSION: SATISFACTORY POSTOPERATIVE LEFT KNEE. TECHNICAL DOCUMENTATION: JOB ID: [id number] [email or web address]- All Rights Reserved Reading location - IP/workstation name: [email or web address]
[2019-09-23] MEDS: OXYCODONE HCL IR 5 MG TABLET PO PRN (16:55)
[2019-09-23] MEDS: ACETAMINOPHEN 325 MG TABLET PO PRN (16:55)
[2019-09-23] MEDS ORDERED: (PENDING PHARMACY ID) (Ranolazine [Ranexa] 1,000 MG) PO SCH (18:00)
[2019-09-23] MEDS ORDERED: IBUPROFEN 800 MG in NORMAL SALINE 250 ML IV SCH (18:00)
[2019-09-23] MEDS: RANOLAZINE 500 MG TAB.SR.12H PO SCH (18:14)
[2019-09-23] MEDS: GABAPENTIN 300 MG CAPSULE PO SCH (18:14)
[2019-09-23] MEDS: SENNOSIDES/DOCUSATE 8.6-50 MG 1 EACH TABLET PO SCH (18:15)
[2019-09-23] MEDS: ATORVASTATIN CALCIUM 40 MG TABLET PO SCH (18:15)
[2019-09-23] MEDS: PANTOPRAZOLE SODIUM 40 MG TABLET.DR PO SCH (18:15)
[2019-09-23] MEDS: MORPHINE SULFATE 10 MG/ML INJ IV PRN (20:54)
[2019-09-23] MEDS ORDERED: (PENDING PHARMACY ID) (Terazosin Hcl [Hytrin] 10 MG) PO SCH (22:00)
[2019-09-23] MEDS ORDERED: FLUNISOLIDE NS SCH (22:00)
[2019-09-23] MEDS: IBUPROFEN 800 MG in NORMAL SALINE 250 ML IV SCH (22:04)
[2019-09-23] MEDS: INSULIN GLARGINE,HUM.REC.ANLOG 1,000 UNIT/10 ML VIAL (PYX) SUBCUT SCH (22:10)
[2019-09-23] MEDS: DOXAZOSIN MESYLATE 4 MG TABLET PO SCH (22:11)
[2019-09-23] MEDS: FLUTICASONE NASAL SPRAY 50 MCG/SPRY 120 SPRAY/16 GM NASL SCH (22:12)
[2019-09-23] MEDS: OXYCODONE HCL SR 10 MG TABLET PO SCH (22:13)
[2019-09-23] MEDS: ISOSORBIDE MONONITRATE 60 MG TAB.ER.24H PO SCH (22:13)
[2019-09-23] MEDS: METHOCARBAMOL 750 MG TABLET PO SCH (22:14)
[2019-09-24] MEDS ORDERED: VANCOMYCIN HCL 1,000 MG in DEXTROSE 5%-WATER 250 ML IV ONE (01:00)
[2019-09-24] MEDS: OXYCODONE HCL IR 5 MG TABLET PO PRN ×3 (01:02→14:34)
[2019-09-24] MEDS: METHOCARBAMOL 750 MG TABLET PO SCH ×4 (05:00→22:40)
[2019-09-24] MEDS: GABAPENTIN 300 MG CAPSULE PO SCH ×4 (05:00→17:09)
[2019-09-24 05:05] LABS: HEMATOCRIT 34.9 % (37.9-51.0); HEMOGLOBIN 12.1 g/dL (13.5-17.0); MEAN CORPUSCULAR HEMOGLOBIN 31.4 pg (27.0-33.4); MEAN CORPUSCULAR HGB CONC 34.7 g/dL (32.0-36.0); MEAN CORPUSCULAR VOLUME 90 fl (80-97); PLATELET COUNT 174 10^3/uL (150-450); RED BLOOD COUNT 3.85 10^6/uL (4.35-5.55); RED CELL DISTRIBUTION WIDTH 15.2 % (11.5-14.0); WHITE BLOOD COUNT 8.2 10^3/uL (4.0-10.5)
[2019-09-24] MEDS: LEVOTHYROXINE SODIUM 0.05 MG TABLET PO SCH (05:05)
[2019-09-24] MEDS: MORPHINE SULFATE 10 MG/ML INJ IV PRN ×4 (05:08→18:54)
[2019-09-24 05:38] LABS: ANION GAP 9 (5-19); BLOOD UREA NITROGEN 13 mg/dL (7-20); CALCIUM 8.3 mg/dL (8.4-10.2); CARBON DIOXIDE 28 mmol/L (22-30); CHLORIDE 100 mmol/L (98-107); GLUCOSE 197 mg/dL (75-110); POTASSIUM 4.3 mmol/L (3.6-5.0)
[2019-09-24] MEDS: IBUPROFEN 800 MG in NORMAL SALINE 250 ML IV SCH ×3 (06:00→22:55)
--- NOTE | 2019-09-24 06:58 | PDOC PROGRESS REPORT ---
Subjective Progress Note for:: 09/24/19 Reason For Visit: M17.12 UNILATERAL PRIMARY OSTEOARTHRITIS, LEFT KNE 68-year-old white male postop day 1 status post left knee arthroplasty. Patient with late arrival to the floor last night and prolonged effects of anesthesia limited participation in physical therapy yesterday to 20 feet of ambulation. Patient complaining of pain overnight but his analgesics have caught up at this point. Physical Exam Vital Signs: Temp Pulse Resp BP Pulse Ox 36.7 C 70 18 144/57 H 95 09/24/19 00:51 09/24/19 04:50 09/24/19 00:51 09/24/19 04:50 09/24/19 04:50 Intake & Output 09/22/19 09/23/19 09/24/19 06:59 06:59 06:59 Intake Total 6539 Output Total 3959 Balance 2580 Weight 111.9 kg Physical Exam: Middle-aged white male lying in bed in minor discomfort. General appearance: PRESENT: mild distress Head exam: PRESENT: normocephalic Respiratory exam: PRESENT: unlabored Cardiovascular exam: PRESENT: RRR Pulses: PRESENT: +1 pedal pulses bilateral GI/Abdominal exam: PRESENT: soft Rectal exam: PRESENT: deferred Extremities exam: PRESENT: other - Left lower extremity compressive dressing in place. Is clean dry and intact. Distal neurovascular summation of the toes is intact. Neurological exam: PRESENT: alert, awake, oriented to person, oriented to place, oriented to time, oriented to situation. ABSENT: motor sensory deficit Psychiatric exam: PRESENT: appropriate affect, normal mood. ABSENT: homicidal ideation, suicidal ideation Skin exam: PRESENT: dry, intact, warm. ABSENT: cyanosis, rash Results Laboratory Results: 09/24/19 04:30 09/24/19 04:30 09/23/19 09/23/19 09/24/19 11:14 11:14 04:30 WBC 6.6 8.2 RBC 4.16 L 3.85 L Hgb 13.0 L 12.1 L Hct 37.4 L 34.9 L MCV 90 90 MCH 31.4 31.4 MCHC 34.9 34.7 RDW 14.5 H 15.2 H Plt Count 193 174 Seg Neutrophils % 69.2 Sodium 140.9 Potassium 4.2 Chloride 101 Carbon Dioxide 30 Anion Gap 10 BUN 12 Creatinine 0.72 Est GFR ( Amer) > 60 Glucose 139 H Calcium 8.9 09/24/19 04:30 WBC RBC Hgb Hct MCV MCH MCHC RDW Plt Count Seg Neutrophils % Sodium 137.4 Potassium 4.3 Chloride 100 Carbon Dioxide 28 Anion Gap 9 BUN 13 Creatinine 0.69 Est GFR ( Amer) > 60 Glucose 197 H Calcium 8.3 L Impressions: Knee X-Ray 09/23/19 13:08 IMPRESSION: SATISFACTORY POSTOPERATIVE LEFT KNEE. Status: Imported from PACS Assessment & Plan - Diagnosis (1) Arthritis of left knee Is this a current diagnosis for this admission?: Yes Plan: Patient to continue with postoperative rehabilitation with physical therapy today and weightbearing as tolerated basis. With his limited progress yesterday with physical therapy I believe will be in the patient's best interest to remain hospitalized for an additional 24 hours and to have the advantage of ongoing physical therapy to increase his functional capacity prior to discharge. - Time Time Spent with patient: 15-24 minutes Anticipated discharge: Home with Homehealth Within: within 24 hours
[2019-09-24] MEDS ORDERED: FLUTICASONE PROPIONATE IN SCH (08:00)
[2019-09-24] MEDS: ACETAMINOPHEN 325 MG TABLET PO PRN ×2 (08:11→14:34)
[2019-09-24] MEDS: OXYCODONE HCL SR 10 MG TABLET PO SCH ×2 (09:35→22:36)
[2019-09-24] MEDS: PRENATAL VITAMIN W DHA CAPSULE PO SCH (09:37)
[2019-09-24] MEDS: METOPROLOL TARTRATE 50 MG TABLET PO SCH (09:37)
[2019-09-24] MEDS: POLYETHYLENE GLYCOL 3350 POWDER 17 GM/1 PACKET PO SCH (09:37)
[2019-09-24] MEDS: DONEPEZIL HCL 5 MG TABLET PO SCH (09:37)
[2019-09-24] MEDS: PANTOPRAZOLE SODIUM 40 MG TABLET.DR PO SCH ×2 (09:37→17:09)
[2019-09-24] MEDS: SENNOSIDES/DOCUSATE 8.6-50 MG 1 EACH TABLET PO SCH ×2 (09:37→17:09)
[2019-09-24] MEDS: CLOPIDOGREL BISULFATE 75 MG TABLET PO SCH (09:37)
[2019-09-24] MEDS: FINASTERIDE 5 MG TABLET PO SCH (09:38)
[2019-09-24] MEDS: ISOSORBIDE MONONITRATE 60 MG TAB.ER.24H PO SCH ×2 (09:38→22:50)
[2019-09-24] MEDS: FERROUS SULFATE 325 MG TABLET PO SCH (09:38)
[2019-09-24] MEDS ORDERED: (PENDING PHARMACY ID) (Donepezil Hcl [Aricept] 10 MG) PO SCH (10:00)
[2019-09-24] MEDS ORDERED: (PENDING PHARMACY ID) (Ferrous Sulfate [Ferrous Sulfate] 324 MG) PO SCH (10:00)
[2019-09-24] MEDS ORDERED: (PENDING PHARMACY ID) (Linaclotide 145 MCG) PO SCH (10:00)
[2019-09-24] MEDS ORDERED: INSULIN GLARGINE HUM REC ANLOG 44 UNIT SQ SCH (10:00)
[2019-09-24] MEDS ORDERED: ALOGLIPTIN BENZOATE 25 MG PO SCH (12:00)
[2019-09-24] MEDS: RANOLAZINE 500 MG TAB.SR.12H PO SCH ×2 (14:50→18:54)
[2019-09-24] MEDS: ATORVASTATIN CALCIUM 40 MG TABLET PO SCH (17:09)
[2019-09-24] MEDS: INSULIN GLARGINE,HUM.REC.ANLOG 1,000 UNIT/10 ML VIAL (PYX) SUBCUT SCH (22:40)
[2019-09-24] MEDS: DOXAZOSIN MESYLATE 4 MG TABLET PO SCH (22:53)
[2019-09-24] MEDS: FLUTICASONE NASAL SPRAY 50 MCG/SPRY 120 SPRAY/16 GM NASL SCH (22:55)
[2019-09-24 23:11] LABS: HEMATOCRIT 35.2 % (37.9-51.0); HEMOGLOBIN 12.2 g/dL (13.5-17.0); MEAN CORPUSCULAR HEMOGLOBIN 31.2 pg (27.0-33.4); MEAN CORPUSCULAR HGB CONC 34.6 g/dL (32.0-36.0); MEAN CORPUSCULAR VOLUME 90 fl (80-97); PLATELET COUNT 184 10^3/uL (150-450); RED BLOOD COUNT 3.92 10^6/uL (4.35-5.55); RED CELL DISTRIBUTION WIDTH 15.2 % (11.5-14.0); WHITE BLOOD COUNT 9.8 10^3/uL (4.0-10.5)
[2019-09-24 23:33] LABS: ANION GAP 13 (5-19); BLOOD UREA NITROGEN 12 mg/dL (7-20); CALCIUM 8.7 mg/dL (8.4-10.2); CARBON DIOXIDE 26 mmol/L (22-30); CHLORIDE 99 mmol/L (98-107); CREATINE KINASE 82 U/L (55-170); GLUCOSE 139 mg/dL (75-110); POTASSIUM 3.9 mmol/L (3.6-5.0)
[2019-09-24 23:42] LABS: CREATINE KINASE MB 2.62 ng/mL (<4.55)
[2019-09-24 23:52] LABS: TROPONIN I < 0.012 ng/mL
[2019-09-25] MEDS: GABAPENTIN 300 MG CAPSULE PO SCH ×2 (00:05→05:58)
[2019-09-25] MEDS: OXYCODONE HCL IR 5 MG TABLET PO PRN ×2 (01:01→09:20)
[2019-09-25] MEDS: IBUPROFEN 800 MG in NORMAL SALINE 250 ML IV SCH (05:54)
[2019-09-25] MEDS: LEVOTHYROXINE SODIUM 0.05 MG TABLET PO SCH (05:58)
[2019-09-25] MEDS: METHOCARBAMOL 750 MG TABLET PO SCH (05:58)
--- NOTE | 2019-09-25 06:49 | PDOC CONSULTATION ---
Consultation Consult Date: 09/24/19 Attending physician:: DINORAH TOLLIVER Provider Consulted: GERI CARLTON Consult reason:: ams History of Present Illness Admission Date/PCP: 09/23/19 08:[facility] Patient complains of: Confusion History of Present Illness: SABAS LARA is a 68 year old male with history of dementia who is postop day 1 of left knee arthroplasty. Consult triggered by onset of agitation and sundowning symptoms of delusions and hallucinations. Review of patient's history, reveals hypothyroidism on Synthroid and dementia. Patient's family is recommended to remain at bedside, patient is placed in sensory deprivation. For mal labs and new draw Chem-7, CBC, troponin and TSH are unremarkable. Patient has improvement of mental status with supportive care alone. Speaking with nurse and family will sign off. Past Medical History Cardiac Medical History: Reports: Myocardial Infarction, Hyperlipidema, Hypertension Denies: Atrial Fibrillation, Congestive Heart Failure, Coronary Artery Disease, Peripheral Vascular Disease, Heart Murmur Pulmonary Medical History: Denies: Asthma, Bronchitis, Chronic Obstructive Pulmonary Disease (COPD), Pneumonia, Sleep Apnea Neurological Medical History: Denies: Seizures Endocrine Medical History: Reports: Diabetes Mellitus Type 1, Diabetes Mellitus Type 2 Denies: Hyperthyroidism, Hypothyroidism Renal/ Medical History: Denies: End Stage Renal Disease GI Medical History: Reports: Gastroesophageal Reflux Disease Denies: Crohn's Disease, Hepatitis, Hiatal Hernia Musculoskeltal Medical History: Reports: Arthritis Denies: Fibromyalgia Psychiatric Medical History: Denies: Bipolar Disorder, Dementia, Depression, Post Traumatic Stress Disorder Hematology: Reports: Bleeding Tendencies - PLAVIX Denies: Anemia, Sickle Cell Disease Past Surgical History Past Surgical History: Reports: Coronary Artery Bypass Graft - x4 bypass, Herniorrhaphy - x7, Other - Recent bilateral browlift surgery and both eyelid lift surgery Denies: Appendectomy, Cholecystectomy, Colostomy, Gastric Bypass Surgery, Pacemaker, Tonsillectomy Social History Information Source: [facility] Records Smoking Status: Former Smoker Frequency of Alcohol Use: None Hx Recreational Drug Use: No Drugs: None Hx Prescription Drug Abuse: No - Advance Directive Resuscitation Status: Full Code Family History Family History: DM, Hypertension Parental Family History Reviewed: No - Unobtainable Children Family History Reviewed: No - Unobtainable Sibling(s) Family History Reviewed.: No - Unobtainable Medication/Allergy Home Medications: Ascorbic Acid [Vitamin C 500 mg Tablet] 500 mg PO NOON 05/20/18 Clopidogrel Bisulfate [Plavix 75 mg Tablet] 75 mg PO DAILY 05/20/18 Gabapentin [Neurontin] 600 mg PO Q6 05/20/18 Insulin Glargine,Hum.rec.anlog [Lantus Solostar] 44 units SQ DAILY 05/20/18 Isosorbide Mononitrate [Imdur 60 mg Tablet.er] 120 mg PO BID 05/20/18 Methocarbamol [Robaxin 750 mg Tablet] 750 mg PO Q8 05/20/18 Nitroglycerin [Nitrostat 0.4 mg (1/150 Gr) Tabs 25/Bottle] 0.4 mg SL Q5MP PRN 05/20/18 Pantoprazole Sodium [Protonix] 40 mg PO BID 05/20/18 Ranolazine [Ranexa] 1,000 mg PO BID@05/20/18 Alogliptin Benzoate [Alogliptin] 25 mg PO NOON 07/30/19 Donepezil HCl [Aricept] 10 mg PO DAILY 07/30/19 Finasteride [Proscar 5 mg Tablet] 5 mg PO DAILY 07/30/19 Flunisolide [Nasarel] 2 puff NS Q12 07/30/19 Linaclotide [Linzess 145 Mcg Capsule] 145 mcg PO DAILY 07/30/19 Polyethylene Glycol 3350 [Miralax Powder 17 gm/Packet] 1 packet PO DAILY 1 09/29/18 Terazosin HCl [Hytrin] 10 mg PO QHS 07/30/19 Tramadol HCl [Ultram 50 mg Tablet] 50 mg PO QHS 07/30/19 Triamcinolone Acetonide [Aristocort 0.1% Cream] 1 applic TP BID 07/30/19 Sumatriptan Succinate [Imitrex 100 mg Tablet] 100 mg PO ASDIR PRN #6 tablet 07/31/19 Ammonium Lactate [Lac-Hydrin 12% Lotion 225Gm/Bottle] 1 dose TOP PRN PRN 09/10/19 Azelastine HCl 1 puff IN QAM 09/10/19 Ceramides 1,3,6-11 [Cerave Cleanser] 1 dose TOP PRN PRN 09/10/19 Clobetasol Propionate [Temovate 0.05% Cream 15 gm] 1 dose TOP PRN PRN 09/10/19 Desonide 1 dose TOP PRN PRN 09/10/19 Diphenhydramine HCl [Benadryl 25 mg Capsule] 25 mg PO PRN PRN 09/10/19 Emollient Base [Vanicream] 1 dose TOP PRN PRN 09/10/19 Erythromycin Base/Ethanol [Erythromycin 2% Gel] 1 dose TOP DAILY 09/10/19 Fluorouracil 1 dose TOP PRN PRN 09/10/19 Fluticasone Propionate [Flovent Diskus] 2 puff IN QAM 09/10/19 Ketoconazole/Skin Cleanser 28 [Ketodan 2% Foam Kit] 1 dose TOP PRN PRN 09/10/19 Pseudoephedrine HCl [Sudafed 12 Hour] 120 mg PO PRN PRN 09/10/19 Atorvastatin Calcium [Lipitor 80 mg Tablet] 40 mg PO QHS 09/23/19 Ferrous Gluconate 324 mg PO ACBRKFST 09/23/19 Flunisolide [Nasarel] 2 spray NS QHS 09/23/19 Fluticasone Propionate [Flonase Nasal [place] 50 Mcg/[place] 16 gm] 1 spray NASL DAILY 09/23/19 Levothyroxine Sodium [Synthroid 0.05 mg Tablet] 0.05 mg PO Q6AM 09/23/19 Metoprolol Tartrate [Lopressor 50 mg Tablet] 25 mg PO Q12 09/23/19 Allergies/Adverse Reactions: lisinopril Allergy (Severe, Verified 09/10/19 13:38) TONGUE swelling metformin Allergy (Severe, Verified 09/10/19 13:38) ringing in ears/dizziness metoclopramide HCl [From Reglan] Allergy (Severe, Verified 09/10/19 13:38) Hallucinations red dye [Red Dye] Allergy (Intermediate, Verified 09/10/19 13:38) Rash venlafaxine Allergy (Intermediate, Verified 09/10/19 13:38) coded from other allergy "vemlasaxine" HYPER buspirone [Buspirone] Allergy (Unknown, Verified 09/10/19 13:38) sumatriptan Allergy (Verified 09/10/19 14:13) Chest pain pregabalin Adverse Reaction (Intermediate, Verified 09/10/19 13:38) diarrhea/stomach upset ibuprofen Adverse Reaction (Mild, Verified 09/10/19 13:38) headache aspirin Adverse Reaction (Verified 09/10/19 13:38) VOMITING duloxetine Adverse Reaction (Verified 09/10/19 13:39) Nausea naproxen Adverse Reaction (Verified 09/10/19 13:38) Review of Systems ROS unobtainable: Due to mental status Physical Exam Vital Signs: Temp Pulse Resp BP Pulse Ox 98.2 F 86 18 123/77 99 09/24/19 22:18 09/24/19 22:18 09/24/19 22:18 09/24/19 22:18 09/24/19 22:18 Intake & Output 09/23/19 09/24/19 09/25/19 11:59 11:59 11:59 Intake Total 6789 1005 Output Total 3959 850 Balance 2830 155 Weight 111.13 kg 111.9 kg General appearance: PRESENT: no acute distress, mild distress Results Laboratory Results: 09/24/19 23:02 09/24/19 23:02 09/24/19 09/24/19 09/24/19 23:02 23:02 23:02 WBC 9.8 RBC 3.92 L Hgb 12.2 L Hct 35.2 L MCV 90 MCH 31.2 MCHC 34.6 RDW 15.2 H Plt Count 184 Sodium 137.8 Potassium 3.9 Chloride 99 Carbon Dioxide 26 Anion Gap 13 BUN 12 Creatinine 0.72 Est GFR ( Amer) > 60 Glucose 139 H Calcium 8.7 TSH 6.53 H 09/24/19 09/24/19 23:02 23:02 Creatine Kinase 82 CK-MB (CK-2) 2.62 Troponin I < 0.012 Impressions: Knee X-Ray 09/23/19 13:08 IMPRESSION: SATISFACTORY POSTOPERATIVE LEFT KNEE. Assessment and Plan - Diagnosis (1) Acute encephalopathy Is this a current diagnosis for this admission?: Yes Plan: Secondary to dementia with sundowning versus medication. Patient improved to baseline with supportive care, family at bedside and sensory deprivation PRN. Anticipate recurrence if continued hospitalization or rehab placement. Suggest limit narcotics. Thank you! Please reconsult if new medical concern.
[2019-09-25 07:42] LABS: HEMATOCRIT 32.5 % (37.9-51.0); HEMOGLOBIN 11.3 g/dL (13.5-17.0); MEAN CORPUSCULAR HEMOGLOBIN 31.6 pg (27.0-33.4); MEAN CORPUSCULAR HGB CONC 34.6 g/dL (32.0-36.0); MEAN CORPUSCULAR VOLUME 91 fl (80-97); PLATELET COUNT 168 10^3/uL (150-450); RED BLOOD COUNT 3.57 10^6/uL (4.35-5.55); RED CELL DISTRIBUTION WIDTH 15.3 % (11.5-14.0); WHITE BLOOD COUNT 9.3 10^3/uL (4.0-10.5)
--- NOTE | 2019-09-25 08:01 | PDOC DISCHARGE SUMMARY ---
Impression - Admit/DC Date/PCP Admission Date/Primary Care Provider: 09/23/19 08:58 [facility] Discharge Date: 09/25/19 - Discharge Diagnosis (1) Arthritis of left knee Is this a current diagnosis for this admission?: Yes - Additional Information Resuscitation Status: Full Code Discharge Diet: Regular Discharge Activity: Balance Activity w/Rest, No tub bath Referrals: DINORAH TOLLIVER MD [ACTIVE STAFF] - 10/08/19 9:45 am Home Medications: Ascorbic Acid [Vitamin C 500 mg Tablet] 500 mg PO NOON 05/20/18 Clopidogrel Bisulfate [Plavix 75 mg Tablet] 75 mg PO DAILY 05/20/18 Gabapentin [Neurontin] 600 mg PO Q6 05/20/18 Insulin Glargine,Hum.rec.anlog [Lantus Solostar] 44 units SQ DAILY 05/20/18 Isosorbide Mononitrate [Imdur 60 mg Tablet.er] 120 mg PO BID 05/20/18 Methocarbamol [Robaxin 750 mg Tablet] 750 mg PO Q8 05/20/18 Nitroglycerin [Nitrostat 0.4 mg (1/150 Gr) Tabs 25/Bottle] 0.4 mg SL Q5MP PRN 05/20/18 Pantoprazole Sodium [Protonix] 40 mg PO BID 05/20/18 Ranolazine [Ranexa] 1,000 mg PO BID@05/20/18 Alogliptin Benzoate [Alogliptin] 25 mg PO NOON 07/30/19 Donepezil HCl [Aricept] 10 mg PO DAILY 07/30/19 Finasteride [Proscar 5 mg Tablet] 5 mg PO DAILY 07/30/19 Flunisolide [Nasarel] 2 puff NS Q12 07/30/19 Linaclotide [Linzess 145 Mcg Capsule] 145 mcg PO DAILY 07/30/19 Polyethylene Glycol 3350 [Miralax Powder 17 gm/Packet] 1 packet PO DAILY 07/30/19 Terazosin HCl [Hytrin] 10 mg PO QHS 07/30/19 Tramadol HCl [Ultram 50 mg Tablet] 50 mg PO QHS 07/30/19 Triamcinolone Acetonide [Aristocort 0.1% Cream] 1 applic TP BID 07/30/19 Sumatriptan Succinate [Imitrex 100 mg Tablet] 100 mg PO ASDIR PRN #6 tablet 07/31/19 Ammonium Lactate [Lac-Hydrin 12% Lotion 225Gm/Bottle] 1 dose TOP PRN PRN 09/10/19 Azelastine HCl 1 puff IN QAM 09/10/19 Ceramides 1,3,6-11 [Cerave Cleanser] 1 dose TOP PRN PRN 09/10/19 Clobetasol Propionate [Temovate 0.05% Cream 15 gm] 1 dose TOP PRN PRN 09/10/19 Desonide 1 dose TOP PRN PRN 09/10/19 Diphenhydramine HCl [Benadryl 25 mg Capsule] 25 mg PO PRN PRN 09/10/19 Emollient Base [Vanicream] 1 dose TOP PRN PRN 09/10/19 Erythromycin Base/Ethanol [Erythromycin 2% Gel] 1 dose TOP DAILY 09/10/19 Fluorouracil 1 dose TOP PRN PRN 09/10/19 Fluticasone Propionate [Flovent Diskus] 2 puff IN QAM 09/10/19 Ketoconazole/Skin Cleanser 28 [Ketodan 2% Foam Kit] 1 dose TOP PRN PRN 09/10/19 Pseudoephedrine HCl [Sudafed 12 Hour] 120 mg PO PRN PRN 09/10/19 Atorvastatin Calcium [Lipitor 80 mg Tablet] 40 mg PO QHS 09/23/19 Ferrous Gluconate 324 mg PO ACBRKFST 09/23/19 Flunisolide [Nasarel] 2 spray NS QHS 09/23/19 Fluticasone Propionate [Flonase Nasal [place] 50 Mcg/[place] 16 gm] 1 spray NASL DAILY 09/23/19 Levothyroxine Sodium [Synthroid 0.05 mg Tablet] 0.05 mg PO Q6AM 09/23/19 Metoprolol Tartrate [Lopressor 50 mg Tablet] 25 mg PO Q12 09/23/19 History of Present Illiness History of Present Illness: SABAS LARA is a 68 year old male 68-year-old white male with progressive left knee pain and functional disability second osteoarthritis. Patient is admitted for elective left knee arthroplasty. Hospital Course Hospital Course: Patient is admitted through the operating room where he undergoes uncomplicated left knee arthroplasty. He is returned to floor in satisfactory condition. Because of times of transition to the floor and prolonged effects of anesthesia, the patient's physical therapy on the day of surgery was relatively limited. On postop day 1 physical therapy again was attempted but there was some issues with mental status changes which led to a hospitalist consult. Recommendations from the hospitalist are relatively limited. Physical Exam Vital Signs: Temp Pulse Resp BP Pulse Ox 36.8 C 86 18 123/77 99 09/24/19 22:18 09/24/19 22:18 09/24/19 22:18 09/24/19 22:18 09/24/19 22:18 Intake & Output 09/24/19 09/25/19 09/26/19 06:59 06:59 06:59 Intake Total 6539 1470 250 Output Total 3959 1100 Balance 2580 370 250 Weight 111.9 kg 110.2 kg General appearance: PRESENT: no acute distress Head exam: PRESENT: normocephalic Respiratory exam: PRESENT: unlabored Cardiovascular exam: PRESENT: RRR Pulses: PRESENT: +1 pedal pulses bilateral Vascular exam: PRESENT: normal capillary refill GI/Abdominal exam: PRESENT: soft Rectal exam: PRESENT: deferred Neurological exam: PRESENT: alert, awake, oriented to person, oriented to place, oriented to time, oriented to situation. ABSENT: motor sensory deficit Psychiatric exam: PRESENT: appropriate affect, normal mood, other - Patient is alert, oriented, and appropriate this morning requesting discharge home.. ABSENT: homicidal ideation, suicidal ideation Skin exam: PRESENT: dry, intact, warm. ABSENT: cyanosis, rash Results Laboratory Results: WBC 9.3 10^3/uL (4.0-10.5) 09/25/19 06:50 RBC 3.57 10^6/uL (4.35-5.55) L 09/25/19 06:50 Hgb 11.3 g/dL (13.5-17.0) L 09/25/19 06:50 Hct 32.5 % (37.9-51.0) L 09/25/19 06:50 MCV 91 fl (80-97) 09/25/19 06:50 MCH 31.6 pg (27.0-33.4) 09/25/19 06:50 MCHC 34.6 g/dL (32.0-36.0) 09/25/19 06:50 RDW 15.3 % (11.5-14.0) H 09/25/19 06:50 Plt Count 168 10^3/uL (150-450) 09/25/19 06:50 Lymph % (Auto) 19.6 % (13-45) 09/23/19 11:14 Dixon % (Auto) 8.0 % (3-13) 09/23/19 11:14 Eos % (Auto) 2.3 % (0-6) 09/23/19 11:14 Baso % (Auto) 0.9 % (0-2) 09/23/19 11:14 Absolute Neuts (auto) 4.5 10^3/uL (1.7-8.2) 09/23/19 11:14 Absolute Lymphs (auto) 1.3 10^3/uL (0.5-4.7) 09/23/19 11:14 Absolute Monos (auto) 0.5 10^3/uL (0.1-1.4) 09/23/19 11:14 Absolute Eos (auto) 0.2 10^3/uL (0.0-0.6) 09/23/19 11:14 Absolute Basos (auto) 0.1 10^3/uL (0.0-0.2) 09/23/19 11:14 Seg Neutrophils % 69.2 % (42-78) 09/23/19 11:14 PT 13.3 SEC (11.4-15.4) 09/23/19 11:14 INR 1.01 09/23/19 11:14 APTT 33.7 SEC (23.5-35.8) 09/23/19 11:14 Sodium 137.8 mmol/L (137-145) 09/24/19 23:02 Potassium 3.9 mmol/L (3.6-5.0) 09/24/19 23:02 Chloride 99 mmol/L (98-107) 09/24/19 23:02 Carbon Dioxide 26 mmol/L (22-30) 09/24/19 23:02 Anion Gap 13 (5-19) 09/24/19 23:02 BUN 12 mg/dL (7-20) 09/24/19 23:02 Creatinine 0.72 mg/dL (0.52-1.25) 09/24/19 23:02 Est GFR ( Amer) > 60 (>60) 09/24/19 23:02 Est GFR (MDRD) Non-Af > 60 (>60) 09/24/19 23:02 Glucose 139 mg/dL (75-110) H 09/24/19 23:02 POC Glucose 196 mg/dL (70-110) H 09/25/19 06:26 Calcium 8.7 mg/dL (8.4-10.2) 09/24/19 23:02 Creatine Kinase 73 U/L (55-170) 09/25/19 06:50 CK-MB (CK-2) 2.62 ng/mL (<4.55) 09/24/19 23:02 Troponin I < 0.012 ng/mL 09/24/19 23:02 TSH 6.53 uIU/mL (0.47-4.68) H 09/24/19 23:02 09/24/19 23:02 CK-MB (CK-2) 2.62 Troponin I < 0.012 Impressions: Knee X-Ray 09/23/19 13:08 IMPRESSION: SATISFACTORY POSTOPERATIVE LEFT KNEE. Plan Plan of Treatment: Patient to be discharged home on a weightbearing as tolerated amatory program with home health services and DME. Follow-up with Dr. Justus Cheatham [place] for surgery in 2 weeks for staple removal. Time Spent: Less than 30 Minutes Stroke Is this a Stroke Patient?: No Stroke Pt being discharged on Anti-thrombolytic therapy?: Yes Acute Heart Failure - Is this a Heart Failure Patient?: No
[2019-09-25 08:03] LABS: CREATINE KINASE MB 3.17 ng/mL (<4.55)
[2019-09-25 08:10] LABS: TROPONIN I < 0.012 ng/mL
[2019-09-25] MEDS: OXYCODONE HCL SR 10 MG TABLET PO SCH (09:18)
[2019-09-25] MEDS: SENNOSIDES/DOCUSATE 8.6-50 MG 1 EACH TABLET PO SCH (09:18)
[2019-09-25] MEDS: ACETAMINOPHEN 325 MG TABLET PO PRN (09:19)
[2019-09-25] MEDS: METOPROLOL TARTRATE 50 MG TABLET PO SCH (09:19)
[2019-09-25] MEDS: DONEPEZIL HCL 5 MG TABLET PO SCH (09:20)
[2019-09-25] MEDS: FINASTERIDE 5 MG TABLET PO SCH (09:20)
[2019-09-25] MEDS: FERROUS SULFATE 325 MG TABLET PO SCH (09:20)
[2019-09-25] MEDS: PRENATAL VITAMIN W DHA CAPSULE PO SCH (09:20)
[2019-09-25] MEDS: PANTOPRAZOLE SODIUM 40 MG TABLET.DR PO SCH (09:20)
[2019-09-25] MEDS: CLOPIDOGREL BISULFATE 75 MG TABLET PO SCH (09:20)
[2019-09-25] MEDS: ISOSORBIDE MONONITRATE 60 MG TAB.ER.24H PO SCH (09:20)
[2019-09-25] MEDS: POLYETHYLENE GLYCOL 3350 POWDER 17 GM/1 PACKET PO SCH (09:21)
[2019-09-25 12:24] VITALS: BP 132/71
[2019-09-25] MEDS ORDERED: INSULIN GLARGINE,HUM.REC.ANLOG 1,000 UNIT/10 ML VIAL SUBCUT SCH (22:00)
== END 2019-09-25 13:22 | disposition home health service (06) | DRG 470 ==
LOC: INOR 08:58 → 4S 16:15
PROVIDERS: ADMIT Orthopaedic Surgery; ATTEND Orthopaedic Surgery
PROC: 0SRD0JA Replacement of Left Knee Joint with Synthetic Substitute, Uncemented, Open Approach (ICD-10-PCS; principal; 2019-09-23 11:00)
DX: M17.12 Unilateral primary osteoarthritis, left knee (principal); F03.90 Unspecified dementia, unspecified severity, without behavioral disturbance, psychotic disturbance, mood disturbance, and anxiety; E03.9 Hypothyroidism, unspecified; E78.5 Hyperlipidemia, unspecified; I10 Essential (primary) hypertension; E11.9 Type 2 diabetes mellitus without complications; K21.9 Gastro-esophageal reflux disease without esophagitis; I25.2 Old myocardial infarction; Z79.4 Long term (current) use of insulin; Z79.899 Other long term (current) drug therapy; Z95.1 Presence of aortocoronary bypass graft; Z79.02 Long term (current) use of antithrombotics/antiplatelets; Z87.891 Personal history of nicotine dependence; Z88.6 Allergy status to analgesic agent; Z88.8 Allergy status to other drugs, medicaments and biological substances
CPT/HCPCS: 01402; 36415; 80048; 82550; 82553; 82962; 84443; 84484; 85025; 85027; 85610; 85730; 88305; 88311; 93005; 93010; 94799; C1713; C1776; C9290; J0690; J1100; J1741; J1815; J2250; J2270; J2405; J2704; J3010; J3370; J3490; J7050; J7060

== ENCOUNTER → 2019-11-22 | Outpatient (CLI) | payer OTHER | LOC: RAD 10:19 | PROVIDERS: ATTEND Otolaryngology | DX: J32.9 Chronic sinusitis, unspecified (principal); Z53.8 Procedure and treatment not carried out for other reasons ==